=== PATIENT | female | born 1945 | race Caucasian/White ===

== ENCOUNTER 2017-07-16 06:06 | Day surgery (SDC) | payer SELFPAY ==
[2017-07-16] MEDS ORDERED: SUBLIMAZE IV NR (08:24)
[2017-07-16] MEDS ORDERED: VERSED IV NR (08:24)
[2017-07-16 09:09] LABS: Basophils % (Auto) 0.3 % (0.0-1.8); Eosinophils # (Auto) 0.1 K/mm3 (0.0-0.4); Eosinophils % (Auto) 1.2 % (0.0-4.3); Hematocrit 41.4 % (30.3-42.9); Hemoglobin 14.2 gm/dl (10.1-14.3); Lymphocytes # (Auto) 1.9 K/mm3 (1.2-5.4); Lymphocytes % (Auto) 39.1 % (13.4-35.0); Mean Corpuscular HGB Conc 34 % (30-34); Mean Corpuscular Hemoglobin 33 pg (28-32); Mean Corpuscular Volume 95 fl (79-97); Monocytes # (Auto) 0.6 K/mm3 (0.0-0.8); Monocytes % (Auto) 12.7 % (0.0-7.3); Platelet Count 228 K/mm3 (140-440); Red Blood Count 4.36 M/mm3 (3.65-5.03); Red Cell Distribution Width 12.9 % (13.2-15.2)
[2017-07-16 09:21] LABS: INR 0.95 (0.87-1.13)
[2017-07-16 09:22] LABS: Partial Thromboplastin Time 29.6 Sec. (24.2-36.6)
[2017-07-16 09:28] LABS: BUN/Creatinine Ratio 20; Blood Urea Nitrogen 12 mg/dL (7-17); Calcium 9.2 mg/dL (8.4-10.2); Hemolysis Index 141
[2017-07-16 10:38] LABS: Alanine Aminotransferase 27 units/L (7-56)
--- NOTE | 2017-07-16 11:36 | Cat Scan Report ---
CT BIOPSY LUNG LEFT History: Lung mass Description of procedure: Informed consent was obtained. The patient's [id number] served as an drilling manager. Sterile technique was utilized. 1% lidocaine for skin anesthesia. Moderate sedation was accomplished with Versed and fentanyl. The patient was sedated for 15 minutes. Intraobserver time of [address] guidance, a 19-gauge introducer needle was advanced into an approximate 6.6 cm left lower lobe mass. The mass was partially necrotic and bloody. 3 fine needle aspirations and five 20-gauge core biopsies were obtained for pathology. No complications. Impression: Successful fine needle aspiration and biopsy of a 6.6 cm left lower lobe mass.
[2017-07-16 13:37] VITALS: BP 113/76
--- NOTE | 2017-07-16 14:03 | XRay Report ---
AP CHEST: HISTORY: Lung mass, recent left lung biopsy Recent CT-guided biopsy of a left lower lobe lung mass was performed. Followup chest x-ray demonstrates no evidence for pneumothorax. Bilateral pulmonary masses in the lower lung zones are noted. Heart size is at the upper limits of normal. IMPRESSION: No evidence for pneumothorax.
== END 2017-07-16 14:10 | disposition home or self-care (01) ==
LOC: CATHLABREC 06:06 → EDSTATUS 07:30 → CATHLABREC 14:10
PROVIDERS: ATTEND Internal Medicine
DX: C78.02 Secondary malignant neoplasm of left lung (principal); C80.1 Malignant (primary) neoplasm, unspecified; Z79.01 Long term (current) use of anticoagulants; Z79.899 Other long term (current) drug therapy
CPT/HCPCS: 32405; 36415; 36600; 71045; 77012; 80053; 82803; 84436; 84443; 85025; 85610; 85730; 88172; 88173; 88305; 88334; 88341; 88342; 99156; J2250; J3010; 88333

== ENCOUNTER 2017-08-19 10:41 | Day surgery (SDC) | payer SELFPAY ==
[2017-08-19 12:16] LABS: BUN/Creatinine Ratio 20; Blood Urea Nitrogen 14 mg/dL (7-17); Calcium 9.7 mg/dL (8.4-10.2); Hemolysis Index 18
[2017-08-19] MEDS ORDERED: XYLOCAINE 1% 20 mL ONE (12:35)
[2017-08-19] MEDS ORDERED: NACL 0.9% 250ML 250 ML ONE (12:36)
[2017-08-19] MEDS ORDERED: MARCAINE 0.25% INFILTRATI ONE ×2 (12:36→13:04)
[2017-08-19] MEDS ORDERED: HEPARIN 10,000 UNITS/10 ML ONE (12:36)
[2017-08-19] MEDS ORDERED: DILAUDID IV PRN (12:43)
[2017-08-19] MEDS ORDERED: DIPRIVAN 10 MG/ML IV ONE (12:43)
[2017-08-19] MEDS ORDERED: ZOFRAN IV PRN (12:43)
[2017-08-19] MEDS ORDERED: VERSED IV PRN (12:43)
--- NOTE | 2017-08-19 12:43 | Anesthesia Consultation ---
Anesthesia Consult and Med Hx Date of service: 08/19/17 - Airway Anesthetic Teeth Evaluation: Poor ROM Head & Neck: Adequate Mental/Hyoid Distance: Inadequate Mallampati Class: Class III Intubation Access Assessment: Possibly Difficult - Pulmonary Exam CTA: Yes - Cardiac Exam Cardiac Exam: RRR - Pre-Operative Health Status ASA Pre-Surgery Classification: ASA4 Proposed Anesthetic Plan: General - Pulmonary Hx Smoking: No COPD: Yes - Cardiovascular System Hx Hypertension: Yes (DIET CONTROLLED) - Central Nervous System Hx Psychiatric Problems: No - Other Systems Hx Alcohol Use: No Hx Substance Use: No Hx Cancer: Yes
--- NOTE | 2017-08-19 12:43 | Anesthesia Day of Surgery ---
Anesthesia Day of Surgery - Day of Surgery Patient Examined: Yes Patient H&P Reviewed: Yes Patient is NPO: Yes
[2017-08-19] MEDS ORDERED: XYLOCAINE MPF 2% ONE (12:44)
[2017-08-19] MEDS ORDERED: VANCOMYCIN/NS 1 GM/250 ML 1 GM/250 ML BAG IV SCH (13:00)
[2017-08-19] MEDS ORDERED: NACL 0.9% 1000 ML 1,000 ML IV SCH ×2 (13:00)
[2017-08-19] MEDS ORDERED: HEPARIN IV ONE (13:04)
[2017-08-19] MEDS ORDERED: NACL 0.9% 250ML IV ONE (13:04)
[2017-08-19] MEDS ORDERED: XYLOCAINE 1% 20 mL INFILTRATI ONE (13:04)
[2017-08-19] MEDS ORDERED: DILAUDID ONE (13:22)
[2017-08-19] MEDS ORDERED: ZOFRAN ONE (13:38)
[2017-08-19] MEDS ORDERED: DECADRON ONE (13:38)
--- NOTE | 2017-08-19 14:26 | Discharge Summary ---
Short Stay Discharge Plan Activity: advance as tolerated Diet: low fat Wound: per your surgeon's advice Follow up with: JESUS GARCIA MD [Primary Care Provider] - 7 Days
--- NOTE | 2017-08-19 14:58 | Operative Report ---
PREOPERATIVE DIAGNOSIS: Malignancy of the end stoma, etiology probably from the lung area. POSTOPERATIVE DIAGNOSIS: Malignancy etiology, probably from the lung area, pending final pathology report.multiple mases seen , ANESTHESIA: General. BLOOD LOSS: Minimal. SURGERY: Insertion of subcutaneous port under fluoroscopy. This was done on the left subclavian aspect. DESCRIPTION OF PROCEDURE: With the patient in supine position, he was in the usual fashion, I was able to insert a needle toward the direction of subclavian vein on the left side. Then, a guidewire was inserted into it nicely with use of C-arm removing the needle, leaving the guidewire at which point I was able to make a pocket to accommodate the system that was assembled together namely a port. Then, the port was inserted into the pocket itself tacking it to the fascia with use of 3-0 Vicryl. After that maneuvering, I was able to introduce the dilator with use of the guidewire to it nicely removing the guidewire and taking out the dilator leaving the sheath in through which I was able to thread the tubing. It went nicely to the subclavian vein on the left side and then just superior to the great veins of the heart as good backflow of venous blood via the port percutaneously, I was well satisfied. This was tacked to the fascia as mentioned above with 3-0 Vicryl and the same for subcutaneous tissue and 4-0 for the skin itself and the bandage. Then, we took an x-ray of the chest at the end of the operation. The location was good. I did indicate to the nurse where the masses are, this could be seen more on the right side of the chest. JOB# [id number] SURESH/SANDY NAJERA
--- NOTE | 2017-08-19 15:22 | Fluoroscopy Report ---
Chest in OR: Line placement. Breast cancer. A left subclavian central venous line has been placed. The tip appears to lie within the right atrium. Multiple pulmonary masses are identified bilaterally. There is a right pleural effusion. The lungs are fully inflated. No other significant findings. Impression: 1. Port placement as described no apparent complication. 2. Findings consistent with pulmonary metastases.
[2017-08-19 16:18] VITALS: BP 160/72
== END 2017-08-19 16:19 | disposition home or self-care (01) ==
LOC: OR 10:41
PROVIDERS: ATTEND Surgery
DX: C50.912 Malignant neoplasm of unspecified site of left female breast (principal); I10 Essential (primary) hypertension; J44.9 Chronic obstructive pulmonary disease, unspecified; Z88.0 Allergy status to penicillin
CPT/HCPCS: 36415; 36561; 77001; 80048; C1788; J1100; J1170; J1644; J2405; J2704; J3370; J7030; J7050

== ENCOUNTER 2017-11-07 14:29 | Inpatient (IN) | payer SELFPAY ==
--- NOTE | 2017-11-07 13:45 | XRay Report ---
ROUTINE CHEST, TWO VIEWS: HISTORY: Pneumothorax. A large left pneumothorax has developed since 07/16/17 exam. The left pneumothorax is estimated at 75%. There are multiple small and large masses throughout both lungs consistent with metastatic disease which have increased by 50% since the previous exam. No pleural effusion is identified. Heart size is grossly normal. A left Ngnxjz-[id number]-Uzbz is in good position. The bony structures are grossly intact. IMPRESSION: Large left pneumothorax as described. These findings were discussed with Dr. Velez at 1342 hrs. The patient was sent to the emergency department at the ordering physician's request.
--- NOTE | 2017-11-07 14:46 | Ultrasound Report ---
ULTRASOUND PELVIC COMPLETE ULTRASOUND TRANSVAGINAL HISTORY: Pain, ovarian mass. COMPARISON: None. TECHNIQUE: Transabdominal and transvaginal ultrasound with color doppler interrogation. FINDINGS: The uterus and ovaries are not identified consistent with total hysterectomy. No evidence for pelvic cyst, mass, adenopathy or fluid collection. The bladder is empty. IMPRESSION: Hysterectomy. No evidence for pelvic mass.
[2017-11-07 16:17] LABS: Basophils % (Auto) 0.3 % (0.0-1.8); Eosinophils % (Auto) 0.1 % (0.0-4.3); Hematocrit 39.1 % (30.3-42.9); Hemoglobin 13.3 gm/dl (10.1-14.3); Lymphocytes # (Auto) 1.9 K/mm3 (1.2-5.4); Lymphocytes % (Auto) 24.2 % (13.4-35.0); Mean Corpuscular HGB Conc 34 % (30-34); Mean Corpuscular Hemoglobin 34 pg (28-32); Mean Corpuscular Volume 98 fl (79-97); Monocytes # (Auto) 0.2 K/mm3 (0.0-0.8); Platelet Count 232 K/mm3 (140-440); Red Blood Count 3.97 M/mm3 (3.65-5.03); Red Cell Distribution Width 14.6 % (13.2-15.2)
[2017-11-07] MEDS ORDERED: XYLOCAINE 1% MPF 5 mL ONE (16:24)
[2017-11-07 16:29] LABS: Partial Thromboplastin Time 24.4 Sec. (24.2-36.6)
[2017-11-07] MEDS ORDERED: KETAMINE HCL IV ONE ×4 (16:31→19:00)
[2017-11-07] MEDS ORDERED: ATIVAN IV ONE (16:37)
[2017-11-07] MEDS ORDERED: KETALAR IV ONE ×4 (16:37→18:31)
--- NOTE | 2017-11-07 16:37 | Emergency Department Report ---
ED Shortness of Breath HPI - General Chief Complaint: Dyspnea/Respdistress Time Seen by Provider: 11/07/17 15:15 Source: patient, family Mode of arrival: Wheelchair Limitations: Language Barrier - History of Present Illness Initial Comments: 72-year-old female with a past medical history of COPD, GERD, hypertension and cancer multiple known lung tumors presents to the hospital with from outpatient radiology with a pneumothorax. Patient has had shortness of breath and generalized fatigue with exertion the past 2 days. Chest pressure intermittent pleuritic chest pain reported. Patient received chemotherapy yesterday. She has a port to her left chest wall. Her fixer boarding room is Dr. Mendez - Related Data Home Medications Medication Instructions Recorded Confirmed Last Taken Enalapril Maleate [Vasotec] 10 mg PO QDAY 08/19/17 11/07/17 08/18/17 08:30 Omeprazole 40 mg PO QDAY 08/19/17 11/07/17 08/19/17 07:00 Allergies Allergy/AdvReac Type Severity Reaction Status Date / Time Penicillins AdvReac Itching Verified 08/15/17 17:10 ED Review of Systems ROS: Stated complaint: Other details as noted in HPI Comment: All other systems reviewed and negative ED Past Medical Hx - Past Medical History Previous Medical History?: Yes Hx Hypertension: Yes (DIET CONTROLLED) Hx GERD: Yes Hx of Cancer: Yes (lung, ovarian) Hx COPD: Yes Hx HIV: No - Surgical History Past Surgical History?: Yes Additional Surgical History: hysterectomy - Social History Smoking Status: Never Smoker Substance Use Type: None - Medications Home Medications: Home Medications Medication Instructions Recorded Confirmed Last Taken Type Enalapril Maleate [Vasotec] 10 mg PO QDAY 08/19/17 11/07/17 08/18/17 08:30 History Omeprazole 40 mg PO QDAY 08/19/17 11/07/17 08/19/17 07:00 History ED Physical Exam - General Limitations: Language Barrier - Other Other exam information: General: No limitations, patient is alert in no acute distress Head exam: Atraumatic, normocephalic Eyes exam: Normal appearance ENT: Moist mucous membrane, normal oropharynx Neck exam: Normal inspection, full range of motion, no meningismus nontender Respiratory exam: Breath sounds diminished on the left lung field compared to the right. No tachypnea, distress, accessory muscle use. Left anterior chest wall port Cardiovascular: Normal rate and rhythm Abdomen: Soft, nondistended, and nontender, with normal bowel sounds, no rebound, or guarding Extremity: Full range of motion normal inspection no deformity Back: Normal Inspection, full range of motion, no tenderness Neurologic: Alert, oriented x3, cranial nerves intact, no motor or sensory deficit Psychiatric: normal affect, normal mood Skin: Warm, dry, intact ED Course Vital Signs 11/07/17 11/07/17 11/07/17 14:29 16:25 18:02 Temperature 98 F Temperature [ 98 F Pre-Procedure] Pulse Rate 62 Pulse Rate [ 82 74 Intra-Procedure ] Pulse Rate [Pre 70 -Procedure] Respiratory 18 Rate Respiratory 16 16 Rate [Intra- Procedure] Respiratory 16 Rate [Pre- Procedure] Blood Pressure 156/68 Blood Pressure 168/93 182/89 [Intra- Procedure] Blood Pressure 164/78 [Pre-Procedure] O2 Sat by Pulse 93 Oximetry O2 Sat by Pulse 96 95 Oximetry [ Intra-Procedure ] O2 Sat by Pulse 96 Oximetry [Pre- Procedure] - Chest Tube Chest Tube Location: fifth interspace Size of Frisian Tube (cm): 29 Chest Tube Procedure: betadine prep, sterile drapes applied, sterile dressing applied Anesthesia: 1% Lidocaine Volume Anesthetic (ccs): 5 Draper of Air Mitchell: Yes Number of Attempts: 3 Time of Successful Intubation: 18:15 Tube Sutured to Skin: Yes Post Procedure CXR?: Yes - Moderate Sedation Indications: other ASA Class: III Mallampati Airway Score: 3 Preparation: phototypesetting equipment monitor applied, pulse oximeter, capnometry used, supplemental O2 applied, suction/airway equipment at bedside, IV secured Ketamine Dose: 70 ((70x2mg, then 50mg given during 3 attempts)) Complications: none Interventions: oxygen applied Patient Tolerated Procedure: well ED Medical Decision Making - Lab Data Result diagrams: 11/07/17 16:02 11/07/17 16:02 Lab Results 11/07/17 11/07/17 11/07/17 Range/Units 16:02 16:02 16:02 WBC 7.8 (4.5-11.0) K/mm3 RBC 3.97 (3.65-5.03) M/mm3 Hgb 13.3 (10.1-14.3) gm/dl Hct 39.1 (30.3-42.9) % MCV 98 H (79-97) fl MCH 34 H (28-32) pg MCHC 34 (30-34) % RDW 14.6 (13.2-15.2) % Plt Count 232 (140-440) K/mm3 Lymph % (Auto) 24.2 (13.4-35.0) % [place] % (Auto) 2.0 (0.0-7.3) % Eos % (Auto) 0.1 (0.0-4.3) % Baso % (Auto) 0.3 (0.0-1.8) % Lymph # 1.9 (1.2-5.4) K/mm3 [place] # 0.2 (0.0-0.8) K/mm3 Eos # 0.0 (0.0-0.4) K/mm3 Baso # 0.0 (0.0-0.1) K/mm3 Seg Neutrophils % 73.4 H (40.0-70.0) % Seg Neutrophils # 5.7 (1.8-7.7) K/mm3 PT 13.7 (12.2-14.9) Sec. INR 1.00 (0.87-1.13) APTT 24.4 (24.2-36.6) Sec. Sodium 140 (137-145) mmol/L Potassium 4.3 (3.6-5.0) mmol/L Chloride 105.2 (98-107) mmol/L Carbon Dioxide 21 L (22-30) mmol/L Anion Gap 18 mmol/L BUN 22 H (7-17) mg/dL Creatinine 0.7 (0.7-1.2) mg/dL Estimated GFR > 60 ml/min BUN/Creatinine Ratio 31 % Glucose 107 H (65-100) mg/dL Calcium 9.6 (8.4-10.2) mg/dL - Radiology Data Radiology results: report reviewed ROUTINE CHEST, TWO VIEWS: HISTORY: Pneumothorax. A large left pneumothorax has developed since 07/16/17 exam. The left pneumothorax is estimated at 75%. There are multiple small and large masses throughout both lungs consistent with metastatic disease which have increased by 50% since the previous exam. No pleural effusion is identified. Heart size is grossly normal. A left Infuse-a- Port is in good position. The bony structures are grossly intact. IMPRESSION: Large left pneumothorax as described. These findings were discussed with Dr. Velez at 1342 hrs. The patient was sent to the emergency department at the ordering physician's request. - Differential Diagnosis cancer, pneumothroax, copd, pneumonia Critical Care Time: No Critical care attestation.: If time is entered above; I have spent that time in minutes in the direct care of this critically ill patient, excluding procedure time. ED Disposition Clinical Impression: Lung cancer, Pneumothorax, left, COPD (chronic obstructive pulmonary disease) Disposition: 09 OP ADMIT IP TO THIS HOSP Is pt being admited?: Yes Condition: Stable Time of Disposition: 18:38 (Dr Paz/hospitalist)
[2017-11-07 16:38] LABS: BUN/Creatinine Ratio 31; Blood Urea Nitrogen 22 mg/dL (7-17); Calcium 9.6 mg/dL (8.4-10.2); Hemolysis Index 18
[2017-11-07] MEDS ORDERED: XYLOCAINE 1% 20 mL INFILTRATI ONE (16:38)
--- NOTE | 2017-11-07 18:49 | XRay Report ---
FINAL REPORT PROCEDURE: XR CHEST 1V AP TECHNIQUE: Chest radiograph anteroposterior view. CPT 75258 HISTORY: Chest tube COMPARISON: No prior studies are available for comparison. FINDINGS: Heart: Normal. Mediastinum/Vessels: Normal. Lungs/Pleural space: There is a large left pneumothorax, occupying the majority of the left hemithorax. Chest tube tip appears to be within the left chest wall rather than within the pleural space. Nodular densities are seen in the right lung, which is not fully imaged Bony thorax: No acute osseous abnormality. Life support devices: Left central venous catheter tip is in the superior vena cava. IMPRESSION: Large left pneumothorax. Chest tube tip appears to be within the left chest wall rather than within the pleural space. Right lung is not fully imaged. There appear to be right lung nodular densities present
--- NOTE | 2017-11-07 18:53 | XRay Report ---
FINAL REPORT PROCEDURE: XR CHEST 1V AP TECHNIQUE: Chest radiograph anteroposterior view. CPT 13562 HISTORY: chest tube COMPARISON: 11/07/2017 FINDINGS: Heart: Normal. Mediastinum/Vessels: Normal. Lungs/Pleural space: Large left pneumothorax, occupying the majority of the left montez thorax. Bony thorax: No acute osseous abnormality. Life support devices: Left-sided chest tube is within the left chest wall rather than within the pleural space. IMPRESSION: Large left pneumothorax. Chest tube is within the left chest wall rather than within the pleural space and should be repositioned. Findings were discussed with Dr. Camara by telephone at 5:50 p.m. central standard time on 11/07/2017.
--- NOTE | 2017-11-07 19:49 | XRay Report ---
FINAL REPORT PROCEDURE: XR CHEST 1V AP TECHNIQUE: Chest radiograph anteroposterior view. CPT 85882 HISTORY: CHEST TUBE PLACE COMPARISON: 11/07/2017 FINDINGS: Heart: Normal. Mediastinum/Vessels: Normal. Lungs/Pleural space: Left chest tube has been advanced, with re-expansion of the left lung. No left-sided pneumothorax is visible. Bilateral pulmonary nodules are seen.. Bony thorax: No acute osseous abnormality. Life support devices: Left MediPort catheter tip is in the superior vena cava. IMPRESSION: There has been re-expansion of the left lung, with no left pneumothorax visible
--- NOTE | 2017-11-07 22:12 | History and Physical Report ---
History of Present Illness Date of examination: 11/07/17 Date of admission: 11/07/17 18:47 Chief complaint: Chief complaint Shortness of breath for 2 days Left-sided chest pain for 2 days with inspiration History of present illness: History of Present Illness: 72-year-old female with history of ovarian cancer metastatic to lungs sent from outpatient radiology for left-sided pneumothorax. Patient denies shortness of breath and generalized fatigue with exertion for the last 2 days. Also left-sided chest pain which is more with inspiration. Patient received chemotherapy yesterday. She also has a port on the left side. Her lung specialist is Dr. Mendoza and oncologist is Dr. dove Past Medical History Previous Medical History?: Yes Hx Hypertension: Yes (DIET CONTROLLED) Hx GERD: Yes Hx of Cancer: Yes (lung, ovarian) Hx COPD: Yes Surgical History Past Surgical History?: Yes Additional Surgical History: hysterectomy Social History Smoking Status: Never Smoker Substance Use Type: None Family history Htn Medications Home Medications: Home Medications Medication Instructions Recorded Confirmed Last Taken Type Enalapril Maleate [Vasotec] 10 mg PO QDAY 08/19/17 11/07/17 08/18/17 08:30 History Omeprazole 40 mg PO QDAY 08/19/17 11/07/17 08/19/17 07:00 History Review of Systems ROS: Stated complaint: Other details as noted in HPI Comment: All other systems reviewed and negative Medications and Allergies Allergies Allergy/AdvReac Type Severity Reaction Status Date / Time Penicillins AdvReac Itching Verified 08/15/17 17:10 Home Medications Medication Instructions Recorded Confirmed Last Taken Type Enalapril Maleate [Vasotec] 10 mg PO QDAY 08/19/17 11/07/17 08/18/17 08:30 History Omeprazole 40 mg PO QDAY 08/19/17 11/07/17 08/19/17 07:00 History Exam - Physical Exam Narrative exam: Lying in bed in discomfort - Constitutional Vitals: Temp Pulse Resp BP Pulse Ox 98 F 60 16 144/72 93 11/07/17 18:02 11/07/17 20:03 11/07/17 20:03 11/07/17 20:03 11/07/17 20:03 General appearance: Present: severe distress, well-nourished - EENT Eyes: Present: PERRL ENT: hearing intact, clear oral mucosa - Neck Neck: Present: supple, normal ROM - Respiratory Respiratory effort: normal Respiratory: left: diminished (diminished air entry on left side), bilateral: CTA - Cardiovascular Heart rate: 76 Rhythm: regular Heart Sounds: Present: S1 & S2. Absent: rub, click - Extremities Extremities: no ischemia, pulses intact, pulses symmetrical, No edema Peripheral Pulses: within normal limits - Abdominal General gastrointestinal: Present: soft, non-tender, non-distended, normal bowel sounds Female genitourinary: Present: normal - Rectal Rectal Exam: deferred - Integumentary Integumentary: Present: clear, warm, dry - Musculoskeletal Musculoskeletal: gait normal, strength equal bilaterally - Psychiatric Psychiatric: appropriate mood/affect, intact judgment & insight - Neurologic Neurologic: CNII-XII intact, moves all extremities - Allied Health Allied health notes reviewed: nursing, case management Results - Labs CBC & Chem 7: 11/07/17 16:02 11/07/17 16:02 Labs: Laboratory Last Values WBC 7.8 K/mm3 (4.5-11.0) 11/07/17 16:02 RBC 3.97 M/mm3 (3.65-5.03) 11/07/17 16:02 Hgb 13.3 gm/dl (10.1-14.3) 11/07/17 16:02 Hct 39.1 % (30.3-42.9) 11/07/17 16:02 MCV 98 fl (79-97) H 11/07/17 16:02 MCH 34 pg (28-32) H 11/07/17 16:02 MCHC 34 % (30-34) 11/07/17 16:02 RDW 14.6 % (13.2-15.2) 11/07/17 16:02 Plt Count 232 K/mm3 (140-440) 11/07/17 16:02 Lymph % (Auto) 24.2 % (13.4-35.0) 11/07/17 16:02 [place] % (Auto) 2.0 % (0.0-7.3) 11/07/17 16:02 Eos % (Auto) 0.1 % (0.0-4.3) 11/07/17 16:02 Baso % (Auto) 0.3 % (0.0-1.8) 11/07/17 16:02 Lymph # 1.9 K/mm3 (1.2-5.4) 11/07/17 16:02 [place] # 0.2 K/mm3 (0.0-0.8) 11/07/17 16:02 Eos # 0.0 K/mm3 (0.0-0.4) 11/07/17 16:02 Baso # 0.0 K/mm3 (0.0-0.1) 11/07/17 16:02 Seg Neutrophils % 73.4 % (40.0-70.0) H 11/07/17 16:02 Seg Neutrophils # 5.7 K/mm3 (1.8-7.7) 11/07/17 16:02 PT 13.7 Sec. (12.2-14.9) 11/07/17 16:02 INR 1.00 (0.87-1.13) 11/07/17 16:02 APTT 24.4 Sec. (24.2-36.6) 11/07/17 16:02 Sodium 140 mmol/L (137-145) 11/07/17 16:02 Potassium 4.3 mmol/L (3.6-5.0) 11/07/17 16:02 Chloride 105.2 mmol/L (98-107) 11/07/17 16:02 Carbon Dioxide 21 mmol/L (22-30) L 11/07/17 16:02 Anion Gap 18 mmol/L 11/07/17 16:02 BUN 22 mg/dL (7-17) H 11/07/17 16:02 Creatinine 0.7 mg/dL (0.7-1.2) 11/07/17 16:02 Estimated GFR > 60 ml/min 11/07/17 16:02 BUN/Creatinine Ratio 31 % 11/07/17 16:02 Glucose 107 mg/dL (65-100) H 11/07/17 16:02 Calcium 9.6 mg/dL (8.4-10.2) 11/07/17 16:02 Short CBC 11/07/17 Range/Units 16:02 WBC 7.8 (4.5-11.0) K/mm3 Hgb 13.3 (10.1-14.3) gm/dl Hct 39.1 (30.3-42.9) % Plt Count 232 (140-440) K/mm3 [facility] 11/07/17 16:02 Sodium 140 Potassium 4.3 Chloride 105.2 Carbon Dioxide 21 L BUN 22 H Creatinine 0.7 Glucose 107 H Calcium 9.6 - Imaging and Cardiology EKG: report reviewed (normal sinus rhythm heart rate of 89 per minute no acute ST-T wave changes EKG interpreted by me) Imaging and Cardiology: Chest x-ray IMPRESSION: Large left pneumothorax as described. These findings were discussed with Dr. Velez at 1342 hrs. The patient was sent to the emergency department at the ordering physician's request. Pelvic ultrasound FINDINGS: The uterus and ovaries are not identified consistent with total hysterectomy. No evidence for pelvic cyst, mass, adenopathy or fluid collection. The bladder is empty. IMPRESSION: Hysterectomy. No evidence for pelvic mass. Transvaginal ultrasound IMPRESSION: Hysterectomy. No evidence for pelvic mass. Assessment and Plan Advance Directives: Yes (full code) VTE prophylaxis?: Chemical Plan of care discussed with patient/family: Yes - Patient Problems (1) Pneumothorax, left Current Visit: Yes Status: Acute Plan to address problem: Chest tube inserted in the emergency room Dr. MENDOZA Consulted (2) Lung cancer Current Visit: Yes Status: Chronic Qualifiers: Lung location: unspecified part of lung Plan to address problem: Dr. Barbie rosales consulted On chemotherapy Not sure whether patient has ovarian cancer No pelvic mass (3) COPD (chronic obstructive pulmonary disease) Current Visit: Yes Status: Chronic Qualifiers: COPD type: unspecified COPD Qualified Code(s): J44.9 - Chronic obstructive pulmonary disease, unspecified Plan to address problem: Continue duo nebs (4) T2DM (type 2 diabetes mellitus) Current Visit: Yes Status: Chronic Qualifiers: Diabetes mellitus terminal block assembler insulin use: without mcfp use Plan to address problem: Continue coverage and metformin (5) Hypertension Current Visit: Yes Status: Chronic Qualifiers: Hypertension type: essential hypertension Qualified Code(s): I10 - Essential (primary) hypertension Plan to address problem: Continue antihypertensives especially amlodipine 10 mg once a day (6) DVT prophylaxis Current Visit: Yes Status: Acute Plan to address problem: Continue Lovenox and GI prophylaxis
[2017-11-07] MEDS ORDERED: SODIUM CHLORIDE FLUSH SYRINGE 10 ML IV PRN (22:25)
[2017-11-07] MEDS ORDERED: DILAUDID IV PRN (22:25)
[2017-11-07] MEDS ORDERED: ALUM-MAG HYDROX-SIMETH 200-200-20MG/5ML PO PRN (22:25)
[2017-11-07] MEDS ORDERED: AMBIEN PO PRN (22:25)
[2017-11-07] MEDS ORDERED: MORPHINE IV PRN (22:25)
[2017-11-07] MEDS ORDERED: TYLENOL PO PRN (22:25)
[2017-11-07] MEDS ORDERED: REGLAN IV PRN (22:25)
[2017-11-07] MEDS ORDERED: ZOFRAN IV PRN (22:25)
[2017-11-08] MEDS: NACL 0.9% 1000 ML 1,000 ML IV SCH ×2 (00:07→14:35)
[2017-11-08 05:54] LABS: Basophils % (Auto) 0.2 % (0.0-1.8); Eosinophils % (Auto) 0.5 % (0.0-4.3); Hemoglobin 12.3 gm/dl (10.1-14.3); Lymphocytes # (Auto) 2.4 K/mm3 (1.2-5.4); Lymphocytes % (Auto) 33.2 % (13.4-35.0); Mean Corpuscular HGB Conc 34 % (30-34); Mean Corpuscular Hemoglobin 34 pg (28-32); Mean Corpuscular Volume 98 fl (79-97); Monocytes # (Auto) 0.1 K/mm3 (0.0-0.8); Monocytes % (Auto) 1.1 % (0.0-7.3); Platelet Count 186 K/mm3 (140-440); Red Blood Count 3.67 M/mm3 (3.65-5.03); Red Cell Distribution Width 14.8 % (13.2-15.2)
[2017-11-08 06:20] LABS: Alanine Aminotransferase 12 units/L (7-56); Albumin 3.6 g/dL (3.9-5); BUN/Creatinine Ratio 33; Blood Urea Nitrogen 20 mg/dL (7-17); Calcium 8.8 mg/dL (8.4-10.2); Hemolysis Index 8
[2017-11-08] MEDS: DUONEB *Not for PRN Use IH SCH ×4 (07:55→22:05)
[2017-11-08] MEDS ORDERED: PEPCID PO SCH (10:00)
[2017-11-08] MEDS ORDERED: NON-FORMULARY (Enalapril Maleate [Vasotec] 10 MG) PO SCH (10:00)
[2017-11-08] MEDS ORDERED: NON-FORMULARY (Omeprazole [Omeprazole] 40 MG) PO SCH (10:00)
[2017-11-08] MEDS: PROTONIX PO SCH (11:03)
[2017-11-08] MEDS: ZESTRIL PO SCH (11:03)
[2017-11-08] MEDS: SODIUM CHLORIDE FLUSH SYRINGE 10 ML IV SCH ×2 (11:04→22:44)
[2017-11-08] MEDS: MILK OF MAGNESIA PO PRN (14:35)
--- NOTE | 2017-11-08 15:19 | Progress Note ---
Assessment and Plan Assessment and plan: [employer] 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 Patient denies shortness of breath and generalized fatigue with exertion for the last 2 days. Also left-sided chest pain which is more with inspiration. Patient received chemotherapy yesterday. She also has a port on the left side. Her lung specialist is Dr. Mendoza and oncologist is Dr. dawson. Family did not want to tell the patient of the ovarian cancer per Nai. 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 Elias Pneumothorax, left, Catamenial type Chest tube inserted in the emergency room Dr. MENDOZA Consulted and to manage serial CXR Ovarian Cancer with mets to the Left Lung cancer Dr. Valentin group consulted On chemotherapy Not sure whether patient has ovarian cancer No pelvic mass on pelvis u/s COPD (chronic obstructive pulmonary disease) Continue duo nebs T2DM (type 2 diabetes mellitus) Continue coverage and metformin Hypertension Continue antihypertensives especially amlodipine 10 mg once a day DVT prophylaxis Continue Lovenox and GI prophylaxis History Interval history: Patient was seen and examined. Follow-up on current diagnosis of PTX. Overnight uneventful. Patient denies any nausea/vomiting or severe headaches. Imaging, nursing note, chart, labs and old chart reviewed. Discussed with patient. Hospitalist Physical - Physical exam Narrative exam: GEN: WDWN, NAD, Awake, Alert, Orientated HEENT: NCAT, EOMI, PERRL, OP Clear NECK: supple, no adenopathy, no thyromegaly, no JVD CVS/HEART: RRR, normal S1S2, pulses present bilaterally CHEST/LUNGS: left chest tube in place but BS are good bilaterally, Symmetrical chest expansion, good air entry bilaterally GI/Abdomen: soft, NTND, good bowel sounds, no guarding or rebound /Bladder: no suprapubic tenderness, no CVA or paraspinal tenderness EXT/Skin: no c/c/e, no obvious rash MSK: FROM x 4 Neuro: CN 2-12 grossly intact, no new focal deficits Psych: calm - Constitutional Vitals: Temp Pulse Resp BP Pulse Ox 98.1 F 82 18 114/67 91 11/08/17 11:14 11/08/17 13:48 11/08/17 13:48 11/08/17 11:14 11/08/17 13:49 General appearance: Present: well-nourished Results - Labs CBC & Chem 7: 11/08/17 05:12 11/08/17 05:12 Labs: Laboratory Last Values WBC 7.2 K/mm3 (4.5-11.0) 11/08/17 05:12 RBC 3.67 M/mm3 (3.65-5.03) 11/08/17 05:12 Hgb 12.3 gm/dl (10.1-14.3) 11/08/17 05:12 Hct 36.0 % (30.3-42.9) 11/08/17 05:12 MCV 98 fl (79-97) H 11/08/17 05:12 MCH 34 pg (28-32) H 11/08/17 05:12 MCHC 34 % (30-34) 11/08/17 05:12 RDW 14.8 % (13.2-15.2) 11/08/17 05:12 Plt Count 186 K/mm3 (140-440) 11/08/17 05:12 Lymph % (Auto) 33.2 % (13.4-35.0) 11/08/17 05:12 [place] % (Auto) 1.1 % (0.0-7.3) 11/08/17 05:12 Eos % (Auto) 0.5 % (0.0-4.3) 11/08/17 05:12 Baso % (Auto) 0.2 % (0.0-1.8) 11/08/17 05:12 Lymph # 2.4 K/mm3 (1.2-5.4) 11/08/17 05:12 [place] # 0.1 K/mm3 (0.0-0.8) 11/08/17 05:12 Eos # 0.0 K/mm3 (0.0-0.4) 11/08/17 05:12 Baso # 0.0 K/mm3 (0.0-0.1) 11/08/17 05:12 Seg Neutrophils % 65.0 % (40.0-70.0) 11/08/17 05:12 Seg Neutrophils # 4.6 K/mm3 (1.8-7.7) 11/08/17 05:12 PT 13.7 Sec. (12.2-14.9) 11/07/17 16:02 INR 1.00 (0.87-1.13) 11/07/17 16:02 APTT 24.4 Sec. (24.2-36.6) 11/07/17 16:02 Sodium 141 mmol/L (137-145) 11/08/17 05:12 Potassium 4.3 mmol/L (3.6-5.0) 11/08/17 05:12 Chloride 106.8 mmol/L (98-107) 11/08/17 05:12 Carbon Dioxide 24 mmol/L (22-30) 11/08/17 05:12 Anion Gap 15 mmol/L 11/08/17 05:12 BUN 20 mg/dL (7-17) H 11/08/17 05:12 Creatinine 0.6 mg/dL (0.7-1.2) L 11/08/17 05:12 Estimated GFR > 60 ml/min 11/08/17 05:12 BUN/Creatinine Ratio 33 % 11/08/17 05:12 Glucose 79 mg/dL (65-100) 11/08/17 05:12 POC Glucose 151 (70-105) H 11/08/17 11:15 Hemoglobin A1c 6.5 % (4-6) H 11/07/17 23:04 Calcium 8.8 mg/dL (8.4-10.2) 11/08/17 05:12 Total Bilirubin 1.50 mg/dL (0.1-1.2) H 11/08/17 05:12 AST 22 units/L (5-40) 11/08/17 05:12 ALT 12 units/L (7-56) 11/08/17 05:12 Alkaline Phosphatase 57 units/L (35-129) 11/08/17 05:12 Total Protein 6.1 g/dL (6.3-8.2) L 11/08/17 05:12 Albumin 3.6 g/dL (3.9-5) L 11/08/17 05:12 Albumin/Globulin Ratio 1.4 % 11/08/17 05:12
--- NOTE | 2017-11-08 18:40 | Consultation ---
History of Present Illness Consult date: 11/08/17 Reason for consult: dyspnea, pneumothorax, lung mass History of present illness: PULMONARY CONSULTATION DR. BURKS THANK YOU FOR ASKING ME TO PARTICIPATE IN THE CARE OF THIS PATIENT: PATIENT KNOWN TO ME. This is 72 year old female, known to me follwebart in my office.Patient originally presented to my office few months ago with abnormal chest xray and CAT scan of chest. Chest xray and CAT scan showed bilateral multiple pulmonary nodules.Patient complained slight cough.Denied excessive shortness of breath or weight loss.Obtained percutaneous needle biopsy of chest lesions under CT guidance at [facility] which is reported as granulosa cell tumor.Patients slides sent to [facility] for second opinion. 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 Patient refered to Oncologist Dr. CRONIN who started on chemotherapy.Patient received 3 cycles of chemotherapy. Patient developed increasing shortness of breath for last 2 weeks.Patient came to my office yesterday. Chest xray obtained showed large left Pneumothorax.Patient also complained shortness of breath even with slight exertion.Patient sent to [facility] ,repeated chest xray which showed again large left pneumothorax.Patient sent to the emergency room for left chest tube placement and admission to the hospital.Left chest tube inserted by the emergency room physician,left lung is expanded,attached chest tube to the suction 20 cm H2O pressure.Patient says feeling better and breathing better. Patient has abdominal CATscan in the Past, No abdominal masses reported. No mention of Ovaries. To make sure obtained trans vaginal ultrasound which reported no ovaries or uterus Identified consistent with patient history of total abdominal hysterectomy. Patients family history significant for hypertension. Patient is house for most of her life. and has 11 children and 9 living. Patient Allergic to penicillin. Past History Past Medical History: GERD, hypertension, other (Granulosa cell tumor of lung.) Medications and Allergies Allergies Allergy/AdvReac Type Severity Reaction Status Date / Time Penicillins AdvReac Itching Verified 08/15/17 17:10 Home Medications Medication Instructions Recorded Confirmed Last Taken Type Enalapril Maleate [Vasotec] 10 mg PO QDAY 08/19/17 11/07/17 08/18/17 08:30 History Omeprazole 40 mg PO QDAY 08/19/17 11/07/17 08/19/17 07:00 History Active Meds: Active Medications Acetaminophen (Tylenol) 650 mg PO Q4H PRN PRN Reason: Pain MILD(1-3)/Fever >100.5/VELASQUEZ Al Hydrox/Mg Hydrox/Simethicone (Alum-Mag Hydrox-Simeth [id number]/5ml) 30 ml PO Q4H PRN PRN Reason: Indigestion Albuterol/Ipratropium (Duoneb *Not For Prn Use*) 1 ampul IH QIDRT [facility] Last Admin: 11/08/17 17:38 Dose: 1 ampul Enoxaparin Sodium (Lovenox) 40 mg SUB-Q QDAY@2200 [facility] Hydromorphone HCl (Dilaudid) 1 mg IV Q3H PRN PRN Reason: Pain , Severe (7-10) Sodium Chloride (Nacl 0.9% 1000 Ml) 1,000 mls @ 100 mls/hr IV DIRECT [facility] Last Admin: 11/08/17 14:35 Dose: 100 mls/hr Lisinopril (Zestril) 10 mg PO QDAY [facility] Last Admin: 11/08/17 11:03 Dose: 10 mg Magnesium Hydroxide (Milk Of Magnesia) 30 ml PO Q4H PRN PRN Reason: Constipation Last Admin: 11/08/17 14:35 Dose: 30 ml Metoclopramide HCl (Reglan) 10 mg IV Q6H PRN PRN Reason: Nausea And Vomiting Morphine Sulfate (Morphine) 2 mg IV Q4H PRN PRN Reason: Pain, Moderate (4-6) Ondansetron HCl (Zofran) 4 mg IV Q8H PRN PRN Reason: Nausea And Vomiting Oxycodone/Acetaminophen (Percocet 5/325) 1 tab PO Q6H PRN PRN Reason: Pain, Moderate (4-6) Pantoprazole Sodium (Protonix) 40 mg PO DAILY [facility] Last Admin: 11/08/17 11:03 Dose: 40 mg Sodium Chloride (Sodium Chloride Flush Syringe 10 Ml) 10 ml IV BID [facility] Last Admin: 11/08/17 11:04 Dose: 10 ml Sodium Chloride (Sodium Chloride Flush Syringe 10 Ml) 10 ml IV PRN PRN PRN Reason: LINE FLUSH Zolpidem Tartrate (Ambien) 5 mg PO QHS PRN PRN Reason: Insomnia Review of Systems All systems: negative Physical Examination Vital signs: Vital Signs Temp Pulse Resp BP Pulse Ox 98 F 62 18 156/68 93 11/07/17 14:29 11/07/17 14:29 11/07/17 14:29 11/07/17 14:29 11/07/17 14:29 General appearance: no acute distress, alert Eyes: non-icteric ENT: oropharynx moist Neck: supple, no JVD Ascultation: Bilateral: rhonchi, other (Bilateral breath sounds heard after chest tube placement.) Cardiovascular: regular rate and rhythm Gastrointestinal: normoactive bowel sounds, soft Integumentary: normal Extremities: no cyanosis, no edema Musculoskeletal: no deformities Gait: poor gait normal mental status, non-focal exam, pupils equal and round, CN II-XII normal mood appropriate Results - Laboratory Findings CBC and BMP: 11/09/17 06:26 11/09/17 06:26 PT/INR, D-dimer PT 13.7 Sec. (12.2-14.9) 11/07/17 16:02 INR 1.00 (0.87-1.13) 11/07/17 16:02 Abnormal lab findings: Abnormal Labs 11/07/17 11/07/17 11/07/17 16:02 16:02 23:04 MCV 98 H MCH 34 H Seg Neutrophils % 73.4 H Carbon Dioxide 21 L BUN 22 H Creatinine Glucose 107 H POC Glucose Hemoglobin A1c 6.5 H Total Bilirubin Total Protein Albumin 11/08/17 11/08/17 11/08/17 05:12 05:12 11:15 MCV 98 H MCH 34 H Seg Neutrophils % Carbon Dioxide BUN 20 H Creatinine 0.6 L Glucose POC Glucose 151 H Hemoglobin A1c Total Bilirubin 1.50 H Total Protein 6.1 L Albumin 3.6 L - Diagnostic Findings Chest x-ray: report reviewed (Reexpansion of left lung.Left chest tube placement. Bilateral pulmonary massess.), image reviewed Assessment and Plan This is 72 year old female, known to me debbie in my office.Patient originally presented to my office few months ago with abnormal chest xray and CAT scan of chest. Chest xray and CAT scan showed bilateral multiple pulmonary nodules.Patient complained slight cough.Denied excessive shortness of breath or weight loss.Obtained percutaneous needle biopsy of chest lesions under CT guidance at [facility] which is reported as granulosa cell tumor.Patients slides sent to [facility] for second opinion. 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 Patient refered to Oncologist Dr. CRONIN who started on chemotherapy.Patient received 3 cycles of chemotherapy. Patient developed increasing shortness of breath for last 2 weeks.Patient came to my office yesterday. Chest xray obtained showed large left Pneumothorax.Patient also complained shortness of breath even with slight exertion.Patient sent to [facility] ,repeated chest xray which showed again large left pneumothorax.Patient sent to the emergency room for left chest tube placement and admission to the hospital.Left chest tube inserted by the emergency room physician,left lung is expanded,attached chest tube to the suction 20 cm H2O pressure.Patient says feeling better and breathing better. Patient has abdominal CATscan in the Past, No abdominal masses reported. No mention of Ovaries. To make sure obtained trans vaginal ultrasound which reported no ovaries or uterus Identified consistent with patient history of total abdominal hysterectomy. Patients family history significant for hypertension. Patient is house for most of her life. and has 11 children and 9 living. Patient Allergic to penicillin. - Patient Problems (1) Pneumothorax, left Current Visit: Yes Status: Acute Plan to address problem: Left tube placement and reexpansion of left lung. (2) Granulosa cell tumor Current Visit: Yes Status: Acute Plan to address problem: Percutaneous needle Biopsy of chest lesion reported Granulosa cell tumor of Ovarian Origin. (3) Hypertension Current Visit: Yes Status: Chronic Qualifiers: Hypertension type: essential hypertension Qualified Code(s): I10 - Essential (primary) hypertension Plan to address problem: Management as per primary care.
[2017-11-08] MEDS: LOVENOX SUB-Q SCH (22:33)
[2017-11-09 07:15] LABS: Hematocrit 33.3 % (30.3-42.9); Hemoglobin 11.7 gm/dl (10.1-14.3); Mean Corpuscular HGB Conc 35 % (30-34); Mean Corpuscular Hemoglobin 34 pg (28-32); Mean Corpuscular Volume 98 fl (79-97); Platelet Count 161 K/mm3 (140-440); Red Blood Count 3.42 M/mm3 (3.65-5.03); Red Cell Distribution Width 14.3 % (13.2-15.2)
[2017-11-09 07:38] LABS: BUN/Creatinine Ratio 23; Blood Urea Nitrogen 14 mg/dL (7-17); Calcium 8.7 mg/dL (8.4-10.2); Hemolysis Index 6
[2017-11-09] MEDS: DUONEB *Not for PRN Use IH SCH ×3 (08:55→17:36)
[2017-11-09] MEDS: ZESTRIL PO SCH (09:38)
[2017-11-09] MEDS: PROTONIX PO SCH (09:38)
[2017-11-09] MEDS: NACL 0.9% 1000 ML 1,000 ML IV SCH (09:39)
[2017-11-09] MEDS: SODIUM CHLORIDE FLUSH SYRINGE 10 ML IV SCH ×2 (10:00→22:20)
--- NOTE | 2017-11-09 11:32 | XRay Report ---
FINAL REPORT EXAM: XR CHEST 1V AP HISTORY: follow up on left pneumothorax. COMPARISON: Nine chest radiograph performed on 11/07/2017 TECHNIQUE: Single portable view of the chest FINDINGS: Left chest port with tip of the catheter in the superior vena cava. Left-sided pigtail catheter with tip in the periphery of the left montez thorax. The cardiomediastinal silhouette is normal in appearance. There is a small left apical pneumothorax, slightly increased since the previous study. Again seen are bilateral pulmonary nodules. There is a small left pleural effusion. There is no bony abnormality. There is subcutaneous emphysema along the left lateral chest wall. IMPRESSION: Increase in size of left pneumothorax. Unchanged bilateral pulmonary nodules. Small left pleural effusion.
--- NOTE | 2017-11-09 13:55 | Event Note ---
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
--- NOTE | 2017-11-09 15:55 | Progress Note ---
Assessment and Plan This is 72 year old female, known to me debbie in my office.Patient originally presented to my office few months ago with abnormal chest xray and CAT scan of chest. Chest xray and CAT scan showed bilateral multiple pulmonary nodules.Patient complained slight cough.Denied excessive shortness of breath or weight loss.Obtained percutaneous needle biopsy of chest lesions under CT guidance at [facility] which is reported as granulosa cell tumor.Patients slides sent to [facility] for second opinion. 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 Patient refered to Oncologist Dr. CRONIN who started on chemotherapy.Patient received 3 cycles of chemotherapy. Patient developed increasing shortness of breath for last 2 weeks.Patient came to my office yesterday. Chest xray obtained showed large left Pneumothorax.Patient also complained shortness of breath even with slight exertion.Patient sent to [facility] ,repeated chest xray which showed again large left pneumothorax.Patient sent to the emergency room for left chest tube placement and admission to the hospital.Left chest tube inserted by the emergency room physician,left lung is expanded,attached chest tube to the suction 20 cm H2O pressure.Patient says feeling better and breathing better. Patient has abdominal CATscan in the Past, No abdominal masses reported. No mention of Ovaries. To make sure obtained trans vaginal ultrasound which reported no ovaries or uterus Identified consistent with patient history of total abdominal hysterectomy. Patients family history significant for hypertension. Patient is house for most of her life. and has 11 children and 9 living. Patient Allergic to penicillin. 11/09/17 Patient alert, awake. Patient is 4 litres O2 via nasal canula. O2 saturation 95% .No acute respiratory distress.Patients todays chest xray showing increase in left pneumothorax.Patient is getting only intermittent chest tube suction.Increased the suction to 40 cm H2O pressure and made it continuous. Repeating chest xray tomorrow - Patient Problems (1) Pneumothorax, left Current Visit: Yes Status: Acute Plan to address problem: Patients todays chest xray showing increase in left pneumothorax.Patient is getting only intermittent chest tube suction.Increased the suction to 40 cm H2O pressure and made it continuous. Repeating chest xray tomorrow (2) Granulosa cell tumor Current Visit: Yes Status: Acute Plan to address problem: Percutaneous needle Biopsy of chest lesion reported Granulosa cell tumor of Ovarian Origin. (3) Hypertension Current Visit: Yes Status: Chronic Qualifiers: Hypertension type: essential hypertension Qualified Code(s): I10 - Essential (primary) hypertension Plan to address problem: Management as per primary care. Subjective Date of service: 11/09/17 Interval history: Patient alert, awake. Patient is 4 litres O2 via nasal canula. O2 saturation 95% .No acute respiratory distress.Patients todays chest xray showing increase in left pneumothorax.Patient is getting only intermittent chest tube suction.Increased the suction to 40 cm H2O pressure and made it continuous. Repeating chest xray tomorrow. Objective Vital Signs - 12hr 11/09/17 11/09/17 11/09/17 08:55 09:21 09:38 Temperature 98.0 F Pulse Rate 100 H 103 H Pulse Rate [ 72 Anterior Bilateral Throughout] Pulse Rate [ From Monitor] Respiratory 19 Rate Respiratory 17 Rate [Anterior Bilateral Throughout] Blood Pressure 120/68 120/68 O2 Sat by Pulse 95 91 Oximetry 11/09/17 11/09/17 10:00 12:00 Temperature Pulse Rate 79 Pulse Rate [ Anterior Bilateral Throughout] Pulse Rate [ 103 H From Monitor] Respiratory 19 Rate Respiratory Rate [Anterior Bilateral Throughout] Blood Pressure O2 Sat by Pulse 91 Oximetry Constitutional: no acute distress, alert Eyes: non-icteric ENT: oropharynx moist Neck: supple, no JVD Ascultation: Bilateral: rhonchi, other (Bilateral breath sounds heard after chest tube placement.) Cardiovascular: regular rate and rhythm Gastrointestinal: normoactive bowel sounds, soft Integumentary: normal Extremities: no cyanosis, no edema Neurologic: normal mental status, non-focal exam, pupils equal and round, CN II- XII normal Psychiatric: mood appropriate CBC and BMP: 11/09/17 06:26 11/09/17 06:26 ABG, PT/INR, D-dimer: PT/INR, D-dimer PT 13.7 Sec. (12.2-14.9) 11/07/17 16:02 INR 1.00 (0.87-1.13) 11/07/17 16:02 Abnormal lab findings: Abnormal Labs 11/07/17 11/07/17 11/07/17 16:02 16:02 23:04 RBC MCV 98 H MCH 34 H MCHC Seg Neutrophils % 73.4 H Carbon Dioxide 21 L BUN 22 H Creatinine Glucose 107 H POC Glucose Hemoglobin A1c 6.5 H Total Bilirubin Total Protein Albumin 11/08/17 11/08/17 11/08/17 05:12 05:12 11:15 RBC MCV 98 H MCH 34 H MCHC Seg Neutrophils % Carbon Dioxide BUN 20 H Creatinine 0.6 L Glucose POC Glucose 151 H Hemoglobin A1c Total Bilirubin 1.50 H Total Protein 6.1 L Albumin 3.6 L 11/09/17 11/09/17 06:26 06:26 RBC 3.42 L MCV 98 H MCH 34 H MCHC 35 H Seg Neutrophils % Carbon Dioxide BUN Creatinine 0.6 L Glucose POC Glucose Hemoglobin A1c Total Bilirubin Total Protein Albumin Chest x-ray: report reviewed ( increase in left Pneumothorax compare to last chest xray.), image reviewed
--- NOTE | 2017-11-09 17:32 | Progress Note ---
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 Patient denies shortness of breath and generalized fatigue with exertion for the last 2 days. Also left-sided chest pain which is more with inspiration. Patient received chemotherapy yesterday. She also has a port on the left side. Her lung specialist is Dr. Mendoza and oncologist is Dr. dawson. Family did not want to tell the patient of the ovarian cancer per Nai. 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 Elias Pneumothorax, left, Catamenial type Chest tube inserted in the emergency room Dr. MENDOZA Consulted and to manage, increase suction. serial CXR Ovarian Cancer with mets to the Left Lung cancer Dr. Valentin group consulted On chemotherapy Not sure whether patient has ovarian cancer No pelvic mass on pelvis u/s COPD (chronic obstructive pulmonary disease) Continue duo nebs T2DM (type 2 diabetes mellitus) Continue coverage and metformin Hypertension Continue antihypertensives especially amlodipine 10 mg once a day DVT prophylaxis Continue Lovenox and GI prophylaxis History Interval history: Patient was seen and examined. Follow-up on current diagnosis of PTX. Overnight uneventful. Patient denies any nausea/vomiting or severe headaches. Imaging, nursing note, chart, labs and old chart reviewed. Discussed with patient. Hospitalist Physical - Physical exam Narrative exam: GEN: WDWN, NAD, Awake, Alert, Orientated HEENT: NCAT, EOMI, PERRL, OP Clear NECK: supple, no adenopathy, no thyromegaly, no JVD CVS/HEART: RRR, normal S1S2, pulses present bilaterally CHEST/LUNGS: left chest tube in place but BS are good bilaterally, Symmetrical chest expansion, good air entry bilaterally GI/Abdomen: soft, NTND, good bowel sounds, no guarding or rebound /Bladder: no suprapubic tenderness, no CVA or paraspinal tenderness EXT/Skin: no c/c/e, no obvious rash MSK: FROM x 4 Neuro: CN 2-12 grossly intact, no new focal deficits Psych: calm - Constitutional Vitals: Temp Pulse Resp BP Pulse Ox 98.3 F 77 18 105/67 95 11/09/17 16:28 11/09/17 16:28 11/09/17 16:28 11/09/17 16:28 11/09/17 16:28 General appearance: Present: well-nourished Results - Labs CBC & Chem 7: 11/09/17 06:26 11/09/17 06:26 Labs: Laboratory Last Values WBC 4.6 K/mm3 (4.5-11.0) 11/09/17 06:26 RBC 3.42 M/mm3 (3.65-5.03) L 11/09/17 06:26 Hgb 11.7 gm/dl (10.1-14.3) 11/09/17 06:26 Hct 33.3 % (30.3-42.9) 11/09/17 06:26 MCV 98 fl (79-97) H 11/09/17 06:26 MCH 34 pg (28-32) H 11/09/17 06:26 MCHC 35 % (30-34) H 11/09/17 06:26 RDW 14.3 % (13.2-15.2) 11/09/17 06:26 Plt Count 161 K/mm3 (140-440) 11/09/17 06:26 Lymph % (Auto) 33.2 % (13.4-35.0) 11/08/17 05:12 [place] % (Auto) 1.1 % (0.0-7.3) 11/08/17 05:12 Eos % (Auto) 0.5 % (0.0-4.3) 11/08/17 05:12 Baso % (Auto) 0.2 % (0.0-1.8) 11/08/17 05:12 Lymph # 2.4 K/mm3 (1.2-5.4) 11/08/17 05:12 [place] # 0.1 K/mm3 (0.0-0.8) 11/08/17 05:12 Eos # 0.0 K/mm3 (0.0-0.4) 11/08/17 05:12 Baso # 0.0 K/mm3 (0.0-0.1) 11/08/17 05:12 Seg Neutrophils % 65.0 % (40.0-70.0) 11/08/17 05:12 Seg Neutrophils # 4.6 K/mm3 (1.8-7.7) 11/08/17 05:12 PT 13.7 Sec. (12.2-14.9) 11/07/17 16:02 INR 1.00 (0.87-1.13) 11/07/17 16:02 APTT 24.4 Sec. (24.2-36.6) 11/07/17 16:02 Sodium 140 mmol/L (137-145) 11/09/17 06:26 Potassium 4.2 mmol/L (3.6-5.0) 11/09/17 06:26 Chloride 104.9 mmol/L (98-107) 11/09/17 06:26 Carbon Dioxide 24 mmol/L (22-30) 11/09/17 06:26 Anion Gap 15 mmol/L 11/09/17 06:26 BUN 14 mg/dL (7-17) 11/09/17 06:26 Creatinine 0.6 mg/dL (0.7-1.2) L 11/09/17 06:26 Estimated GFR > 60 ml/min 11/09/17 06:26 BUN/Creatinine Ratio 23 % 11/09/17 06:26 Glucose 90 mg/dL (65-100) 11/09/17 06:26 POC Glucose 97 (70-105) 11/08/17 17:09 Hemoglobin A1c 6.5 % (4-6) H 11/07/17 23:04 Calcium 8.7 mg/dL (8.4-10.2) 11/09/17 06:26 Total Bilirubin 1.50 mg/dL (0.1-1.2) H 11/08/17 05:12 AST 22 units/L (5-40) 11/08/17 05:12 ALT 12 units/L (7-56) 11/08/17 05:12 Alkaline Phosphatase 57 units/L (35-129) 11/08/17 05:12 Total Protein 6.1 g/dL (6.3-8.2) L 11/08/17 05:12 Albumin 3.6 g/dL (3.9-5) L 11/08/17 05:12 Albumin/Globulin Ratio 1.4 % 11/08/17 05:12
[2017-11-09] MEDS: PULMICORT IH SCH (19:56)
[2017-11-09] MEDS: BROVANA NEBU IH SCH (19:56)
[2017-11-09] MEDS: LOVENOX SUB-Q SCH (22:14)
[2017-11-09] MEDS: MILK OF MAGNESIA PO PRN (22:15)
--- NOTE | 2017-11-10 04:52 | Consultation ---
REFERRED BY: Dr. Paz. REASON FOR CONSULTATION: History of granulosa cell ovarian tumor, stage 4 and pneumothorax. HISTORY OF PRESENT ILLNESS: I saw the patient, 72-year-old female in the medical floor. The patient has malignant granulosa cell tumor of ovary. This was diagnosed about 20 years ago originally as a gynecological pelvic tumor in [place]. Details of this is not clear. From the information available, the patient had hysterectomy and possibly one oophorectomy. In 07/2017, CT-guided biopsy of lung lesions showed tumor recurrence. The patient has been treated with etoposide and carboplatin. The first cycle was given on 09/09/2017 the 2nd was given on 10/07/2017 and third on 11/04/2017. The patient had undergone disconnection on 11/06/2017. She went to [facility] for shortness of breath with slight exertion. She was sent to [facility] where a large left pneumothorax was found. Chest tube has been placed during this admission. I have been asked to evaluate the patient in view of her history and recent chemotherapy. At this time, breathing has improved. No chest pain at this time apart from discomfort at the site of chest tube. No headache, no visual disturbances. No ear discharge. No bleeding issues. No abdominal pain, no vomiting, no diarrhea. 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 PAST SURGICAL HISTORY: Hysterectomy. SOCIAL HISTORY: Nonsmoker. ALLERGIES: PENICILLIN. PRESENT MEDICATIONS: Includes budesonide, Lovenox, lisinopril. PHYSICAL EXAMINATION: VITAL SIGNS: Temperature 98.3, pulse 77, respirations 18, BP 105/67. No pallor, no icterus. No neck lymph nodes. LUNGS: Clear to auscultation anteriorly. Chest tube present. Port present. ABDOMEN: Soft. EXTREMITIES: No calf tenderness. NEUROLOGIC: Alert, awake, oriented. LABORATORY DATA: White cell 4, hemoglobin 11.7, MCV 98, platelet 161, potassium 4.2, creatinine 0.6, bilirubin 1.5. RADIOLOGY: Chest x-ray showed pneumothorax. Repeat one done today shows small left apical pneumothorax and lung lesions. ASSESSMENT AND PLAN: 1. 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 The patient on carboplatin and etoposide cycle 3, was started on and terminated on . 2. Pneumothorax. This may be secondary to the lung lesions. 3. Hypertension. 4. Port-A-Cath present. I will follow the patient during inpatient stay and then in the clinic setting. JOB# [id number] BARBRA/SANDY
[2017-11-10] MEDS: BROVANA NEBU IH SCH ×2 (08:27→20:29)
[2017-11-10] MEDS: PULMICORT IH SCH ×2 (08:27→20:29)
[2017-11-10] MEDS: SODIUM CHLORIDE FLUSH SYRINGE 10 ML IV SCH ×2 (09:30→22:17)
[2017-11-10] MEDS: ZESTRIL PO SCH (10:05)
[2017-11-10] MEDS: PROTONIX PO SCH (10:06)
--- NOTE | 2017-11-10 11:20 | XRay Report ---
FINAL REPORT EXAM: XR CHEST 1V AP HISTORY: Follow up on pneumothorax COMPARISON: Chest radiograph performed on 11/09/2017 TECHNIQUE: Single portable view of the chest FINDINGS: Left-sided chest tube is unchanged in position. Left chest port with tip of the catheter in the superior vena cava. Again seen is a small left apical pneumothorax, decreased in size since the previous study. Unchanged bilateral pulmonary nodules. No acute bony or soft tissue abnormality. IMPRESSION: Small left apical pneumothorax, decreased since the previous study. Unchanged bilateral pulmonary nodules.
--- NOTE | 2017-11-10 13:19 | Progress Note ---
Assessment and Plan Assessment and plan: [place] Salvadorean Language line used with Daughters in law, Alis and Nai at bedside Patient is a 72-year-old Salvadorean speaking woman with a history of ovarian cancer metastatic to lungs sent from outpatient radiology for left-sided pneumothorax. Patient denies shortness of breath and generalized fatigue with exertion for the last 2 days. Also left-sided chest pain which is more with inspiration. Patient received chemotherapy yesterday. She also has a port on the left side. Her lung specialist is Dr. Mendoza and oncologist is Dr. dawson. Family did not want to tell the patient of the ovarian cancer per Nai. 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 Elias Pneumothorax, left, Catamenial type Chest tube inserted in the emergency room Dr. MENDOZA Consulted and to manage, increase suction. serial CXR Ovarian Cancer with mets to the Left Lung cancer Dr. Valentin group consulted On chemotherapy Not sure whether patient has ovarian cancer No pelvic mass on pelvis u/s COPD (chronic obstructive pulmonary disease) Continue duo nebs T2DM (type 2 diabetes mellitus) Continue coverage and metformin Hypertension Continue antihypertensives especially amlodipine 10 mg once a day DVT prophylaxis Continue Lovenox and GI prophylaxis History Interval history: Patient was seen and examined. Follow-up on current diagnosis of PTX. Overnight uneventful. Patient denies any nausea/vomiting or severe headaches. Imaging, nursing note, chart, labs and old chart reviewed. Discussed with patient. Hospitalist Physical - Physical exam Narrative exam: GEN: WDWN, NAD, Awake, Alert, Orientated HEENT: NCAT, EOMI, PERRL, OP Clear NECK: supple, no adenopathy, no thyromegaly, no JVD CVS/HEART: RRR, normal S1S2, pulses present bilaterally CHEST/LUNGS: left chest tube in place but BS are good bilaterally, Symmetrical chest expansion, good air entry bilaterally GI/Abdomen: soft, NTND, good bowel sounds, no guarding or rebound /Bladder: no suprapubic tenderness, no CVA or paraspinal tenderness EXT/Skin: no c/c/e, no obvious rash MSK: FROM x 4 Neuro: CN 2-12 grossly intact, no new focal deficits Psych: calm - Constitutional Vitals: Temp Pulse Resp BP Pulse Ox 97.8 F 85 18 111/64 95 11/10/17 10:16 11/10/17 10:16 11/10/17 10:16 11/10/17 10:16 11/10/17 10:16 General appearance: Present: well-nourished Results - Labs CBC & Chem 7: 11/09/17 06:26 11/09/17 06:26 Labs: Laboratory Last Values WBC 4.6 K/mm3 (4.5-11.0) 11/09/17 06:26 RBC 3.42 M/mm3 (3.65-5.03) L 11/09/17 06:26 Hgb 11.7 gm/dl (10.1-14.3) 11/09/17 06:26 Hct 33.3 % (30.3-42.9) 11/09/17 06:26 MCV 98 fl (79-97) H 11/09/17 06:26 MCH 34 pg (28-32) H 11/09/17 06:26 MCHC 35 % (30-34) H 11/09/17 06:26 RDW 14.3 % (13.2-15.2) 11/09/17 06:26 Plt Count 161 K/mm3 (140-440) 11/09/17 06:26 Lymph % (Auto) 33.2 % (13.4-35.0) 11/08/17 05:12 [place] % (Auto) 1.1 % (0.0-7.3) 11/08/17 05:12 Eos % (Auto) 0.5 % (0.0-4.3) 11/08/17 05:12 Baso % (Auto) 0.2 % (0.0-1.8) 11/08/17 05:12 Lymph # 2.4 K/mm3 (1.2-5.4) 11/08/17 05:12 [place] # 0.1 K/mm3 (0.0-0.8) 11/08/17 05:12 Eos # 0.0 K/mm3 (0.0-0.4) 11/08/17 05:12 Baso # 0.0 K/mm3 (0.0-0.1) 11/08/17 05:12 Seg Neutrophils % 65.0 % (40.0-70.0) 11/08/17 05:12 Seg Neutrophils # 4.6 K/mm3 (1.8-7.7) 11/08/17 05:12 PT 13.7 Sec. (12.2-14.9) 11/07/17 16:02 INR 1.00 (0.87-1.13) 11/07/17 16:02 APTT 24.4 Sec. (24.2-36.6) 11/07/17 16:02 POC ABG pH 7.465 (7.35-7.45) H 11/10/17 12:16 POC ABG pCO2 34.5 (35-45) L 11/10/17 12:16 POC ABG pO2 60 (80-105) L 11/10/17 12:16 POC ABG HCO3 24.8 11/10/17 12:16 POC ABG Total CO2 26 11/10/17 12:16 POC ABG O2 Sat 92 11/10/17 12:16 POC ABG Base Excess 1 11/10/17 12:16 FiO2 21 % 11/10/17 12:16 Sodium 140 mmol/L (137-145) 11/09/17 06:26 Potassium 4.2 mmol/L (3.6-5.0) 11/09/17 06:26 Chloride 104.9 mmol/L (98-107) 11/09/17 06:26 Carbon Dioxide 24 mmol/L (22-30) 11/09/17 06:26 Anion Gap 15 mmol/L 11/09/17 06:26 BUN 14 mg/dL (7-17) 11/09/17 06:26 Creatinine 0.6 mg/dL (0.7-1.2) L 11/09/17 06:26 Estimated GFR > 60 ml/min 11/09/17 06:26 BUN/Creatinine Ratio 23 % 11/09/17 06:26 Glucose 90 mg/dL (65-100) 11/09/17 06:26 POC Glucose 97 (70-105) 11/08/17 17:09 Hemoglobin A1c 6.5 % (4-6) H 11/07/17 23:04 Calcium 8.7 mg/dL (8.4-10.2) 11/09/17 06:26 Total Bilirubin 1.50 mg/dL (0.1-1.2) H 11/08/17 05:12 AST 22 units/L (5-40) 11/08/17 05:12 ALT 12 units/L (7-56) 11/08/17 05:12 Alkaline Phosphatase 57 units/L (35-129) 11/08/17 05:12 Total Protein 6.1 g/dL (6.3-8.2) L 11/08/17 05:12 Albumin 3.6 g/dL (3.9-5) L 11/08/17 05:12 Albumin/Globulin Ratio 1.4 % 11/08/17 05:12
--- NOTE | 2017-11-10 14:07 | Progress Note ---
Assessment and Plan Patient alert, awake. Patient is 4 litres O2 via nasal canula. O2 saturation 95% .No acute respiratory distress.Patients todays chest xray reported small left apical pneumothorax better than yesterday .Continue chest tube suction. - Patient Problems (1) Pneumothorax, left Current Visit: Yes Status: Acute Plan to address problem: No acute respiratory distress.Patients todays chest xray reported small left apical pneumothorax better than yesterday . (2) Granulosa cell tumor Current Visit: Yes Status: Acute Plan to address problem: Percutaneous needle Biopsy of chest lesion reported Granulosa cell tumor of Ovarian Origin. (3) Hypertension Current Visit: Yes Status: Chronic Qualifiers: Hypertension type: essential hypertension Qualified Code(s): I10 - Essential (primary) hypertension Plan to address problem: Management as per primary care. Subjective Date of service: 11/10/17 Interval history: Patient alert, awake. Patient is 4 litres O2 via nasal canula. O2 saturation 95% .No acute respiratory distress.Patients todays chest xray reported small left apical pneumothorax better than yesterday .Continue chest tube suction. Objective Vital Signs - 12hr 11/10/17 11/10/17 11/10/17 03:29 10:05 10:16 Temperature 98.2 F 97.8 F Pulse Rate 68 68 85 Respiratory 18 18 Rate Blood Pressure 111/72 118/68 111/64 O2 Sat by Pulse 95 95 Oximetry Constitutional: no acute distress, alert Eyes: non-icteric ENT: oropharynx moist Neck: supple, no JVD Ascultation: Bilateral: rhonchi, other (Bilateral breath sounds heard after chest tube placement.) Cardiovascular: regular rate and rhythm Gastrointestinal: normoactive bowel sounds, soft Integumentary: normal Extremities: no cyanosis, no edema Neurologic: normal mental status, non-focal exam, pupils equal and round, CN II- XII normal Psychiatric: mood appropriate CBC and BMP: 11/09/17 06:26 11/09/17 06:26 ABG, PT/INR, D-dimer: ABG POC ABG pH 7.465 (7.35-7.45) H 11/10/17 12:16 POC ABG pCO2 34.5 (35-45) L 11/10/17 12:16 POC ABG pO2 60 (80-105) L 11/10/17 12:16 POC ABG HCO3 24.8 11/10/17 12:16 POC ABG Total CO2 26 11/10/17 12:16 POC ABG O2 Sat 92 11/10/17 12:16 PT/INR, D-dimer PT 13.7 Sec. (12.2-14.9) 11/07/17 16:02 INR 1.00 (0.87-1.13) 11/07/17 16:02 Abnormal lab findings: Abnormal Labs 11/07/17 11/07/17 11/07/17 16:02 16:02 23:04 RBC MCV 98 H MCH 34 H MCHC Seg Neutrophils % 73.4 H POC ABG pH POC ABG pCO2 POC ABG pO2 Carbon Dioxide 21 L BUN 22 H Creatinine Glucose 107 H POC Glucose Hemoglobin A1c 6.5 H Total Bilirubin Total Protein Albumin 11/08/17 11/08/17 11/08/17 05:12 05:12 11:15 RBC MCV 98 H MCH 34 H MCHC Seg Neutrophils % POC ABG pH POC ABG pCO2 POC ABG pO2 Carbon Dioxide BUN 20 H Creatinine 0.6 L Glucose POC Glucose 151 H Hemoglobin A1c Total Bilirubin 1.50 H Total Protein 6.1 L Albumin 3.6 L 11/09/17 11/09/17 11/10/17 06:26 06:26 12:16 RBC 3.42 L MCV 98 H MCH 34 H MCHC 35 H Seg Neutrophils % POC ABG pH 7.465 H POC ABG pCO2 34.5 L POC ABG pO2 60 L Carbon Dioxide BUN Creatinine 0.6 L Glucose POC Glucose Hemoglobin A1c Total Bilirubin Total Protein Albumin Chest x-ray: report reviewed (Reported small left apical pneumothorax,better than yesterdays chest xray.), image reviewed
--- NOTE | 2017-11-10 19:45 | Hem/Onc Progress Note ---
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 The patient on carboplatin and etoposide cycle 3, was started on and terminated on . 2. left Pneumothorax. This may be secondary to the lung lesions. s/p chest tube 3. Hypertension. 4. Port-A-Cath present. I will follow the patient during inpatient stay and then in the clinic setting. 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 Interval history: chest tube area pain Objective - Constitutional Vitals: Last Vital Signs Temp 97.8 F 11/10/17 10:16 Pulse 63 11/10/17 12:00 Resp 18 11/10/17 10:16 BP 111/64 11/10/17 10:16 Pulse Ox 95 11/10/17 10:16 Pain Intensity (0-10): 1/10 General appearance: mild distress Performance status: 2- selfcare, ambulatory - EENT Eyes: PERRL ENT: clear oral mucosa Lymph node exam: negative cervical, negative supraclavicular - Neck Neck: supple - Respiratory Respiratory: left: other (chest tube), bilateral: CTA (anteriorly) - Cardiovascular Heart Sounds: Present: S1 & S2 Extremities: No edema - Gastrointestinal General gastrointestinal: Present: soft, non-tender Rectal Exam: deferred - Genitourinary Female genitourinary: Present: deferred - Musculoskeletal Musculoskeletal: strength equal bilaterally - Neurologic Neurologic: moves all extremities - Psychiatric Psychiatric: appropriate mood/affect - Labs Lab Results: Laboratory Results - last 24 hr 11/10/17 12:16 POC ABG pH 7.465 H POC ABG pCO2 34.5 L POC ABG pO2 60 L POC ABG HCO3 24.8 POC ABG Total CO2 26 POC ABG O2 Sat 92 POC ABG Base Excess 1 FiO2 21
[2017-11-10] MEDS: LOVENOX SUB-Q SCH (22:17)
--- NOTE | 2017-11-11 07:25 | Hem/Onc Progress Note ---
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 The patient on carboplatin and etoposide cycle 3, was started on and terminated on . 2. left Pneumothorax. This may be secondary to the lung lesions. s/p chest tube 3. Hypertension. 4. Port-A-Cath present. I will follow the patient during inpatient stay and then in the clinic setting. d/w pt reg CXR from 11/10 - Patient Problems (1) Granulosa cell tumor Current Visit: Yes Status: Acute Subjective Date of service: 11/11/17 Principal diagnosis: granulosa cell tumor with lung mets Interval history: feeling better Objective - Constitutional Vitals: Last Vital Signs Temp 97.6 F 11/11/17 04:32 Pulse 71 11/11/17 04:32 Resp 18 11/11/17 04:32 BP 100/53 11/11/17 04:32 Pulse Ox 98 11/11/17 04:32 Pain Intensity (0-10): denies any pain General appearance: no acute distress Performance status: 2- selfcare, ambulatory - EENT Eyes: PERRL ENT: clear oral mucosa Lymph node exam: negative cervical, negative supraclavicular - Respiratory Respiratory effort: Positive: normal Respiratory: bilateral: CTA - Cardiovascular Heart Sounds: Present: S1 & S2 Extremities: No edema - Gastrointestinal General gastrointestinal: Present: soft, non-tender Rectal Exam: deferred - Genitourinary Female genitourinary: Present: deferred - Musculoskeletal Musculoskeletal: strength equal bilaterally - Neurologic Neurologic: moves all extremities - Psychiatric Psychiatric: appropriate mood/affect - Labs Lab Results: Laboratory Results - last 24 hr 11/10/17 12:16 POC ABG pH 7.465 H POC ABG pCO2 34.5 L POC ABG pO2 60 L POC ABG HCO3 24.8 POC ABG Total CO2 26 POC ABG O2 Sat 92 POC ABG Base Excess 1 FiO2 21
--- NOTE | 2017-11-11 07:47 | Progress Note ---
Assessment and Plan Assessment and plan: 2U Andorran Language line used with Daughters in law, Alis and Nai at bedside Patient is a 72-year-old Andorran speaking woman with a history of ovarian cancer metastatic to lungs sent from outpatient radiology for left-sided pneumothorax. Patient denies shortness of breath and generalized fatigue with exertion for the last 2 days. Also left-sided chest pain which is more with inspiration. Patient received chemotherapy yesterday. She also has a port on the left side. Her lung specialist is Dr. Mendoza and oncologist is Dr. dawson. Family did not want to tell the patient of the ovarian cancer per Nai. 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 Elias Pneumothorax, left related to lung mets Chest tube inserted in the emergency room Dr. MENDOZA Consulted and to manage, increase suction. serial CXR Ovarian Cancer with mets to the Left Lung cancer Dr. Valentin group consulted On chemotherapy Not sure whether patient has ovarian cancer No pelvic mass on pelvis u/s COPD (chronic obstructive pulmonary disease) Continue duo nebs T2DM (type 2 diabetes mellitus) Continue coverage and metformin Hypertension Continue antihypertensives especially amlodipine 10 mg once a day DVT prophylaxis Continue Lovenox and GI prophylaxis Disposition: continue inpatient, d/c once PTX resolved and chest tube removed History Interval history: Patient was seen and examined. Follow-up on current diagnosis of PTX. Overnight uneventful. Patient denies any nausea/vomiting or severe headaches. Imaging, nursing note, chart, labs and old chart reviewed. Discussed with patient. Hospitalist Physical - Physical exam Narrative exam: GEN: WDWN, NAD, Awake, Alert, Orientated HEENT: NCAT, EOMI, PERRL, OP Clear NECK: supple, no adenopathy, no thyromegaly, no JVD CVS/HEART: RRR, normal S1S2, pulses present bilaterally CHEST/LUNGS: left chest tube in place but BS are good bilaterally, Symmetrical chest expansion, good air entry bilaterally GI/Abdomen: soft, NTND, good bowel sounds, no guarding or rebound /Bladder: no suprapubic tenderness, no CVA or paraspinal tenderness EXT/Skin: no c/c/e, no obvious rash MSK: FROM x 4 Neuro: CN 2-12 grossly intact, no new focal deficits Psych: calm - Constitutional Vitals: Temp Pulse Resp BP Pulse Ox 97.6 F 71 18 100/53 98 11/11/17 04:32 11/11/17 04:32 11/11/17 04:32 11/11/17 04:32 11/11/17 04:32 General appearance: Present: well-nourished Results - Labs CBC & Chem 7: 11/09/17 06:26 11/09/17 06:26 Labs: Laboratory Last Values WBC 4.6 K/mm3 (4.5-11.0) 11/09/17 06:26 RBC 3.42 M/mm3 (3.65-5.03) L 11/09/17 06:26 Hgb 11.7 gm/dl (10.1-14.3) 11/09/17 06:26 Hct 33.3 % (30.3-42.9) 11/09/17 06:26 MCV 98 fl (79-97) H 11/09/17 06:26 MCH 34 pg (28-32) H 11/09/17 06:26 MCHC 35 % (30-34) H 11/09/17 06:26 RDW 14.3 % (13.2-15.2) 11/09/17 06:26 Plt Count 161 K/mm3 (140-440) 11/09/17 06:26 Lymph % (Auto) 33.2 % (13.4-35.0) 11/08/17 05:12 [place] % (Auto) 1.1 % (0.0-7.3) 11/08/17 05:12 Eos % (Auto) 0.5 % (0.0-4.3) 11/08/17 05:12 Baso % (Auto) 0.2 % (0.0-1.8) 11/08/17 05:12 Lymph # 2.4 K/mm3 (1.2-5.4) 11/08/17 05:12 [place] # 0.1 K/mm3 (0.0-0.8) 11/08/17 05:12 Eos # 0.0 K/mm3 (0.0-0.4) 11/08/17 05:12 Baso # 0.0 K/mm3 (0.0-0.1) 11/08/17 05:12 Seg Neutrophils % 65.0 % (40.0-70.0) 11/08/17 05:12 Seg Neutrophils # 4.6 K/mm3 (1.8-7.7) 11/08/17 05:12 PT 13.7 Sec. (12.2-14.9) 11/07/17 16:02 INR 1.00 (0.87-1.13) 11/07/17 16:02 APTT 24.4 Sec. (24.2-36.6) 11/07/17 16:02 POC ABG pH 7.465 (7.35-7.45) H 11/10/17 12:16 POC ABG pCO2 34.5 (35-45) L 11/10/17 12:16 POC ABG pO2 60 (80-105) L 11/10/17 12:16 POC ABG HCO3 24.8 11/10/17 12:16 POC ABG Total CO2 26 11/10/17 12:16 POC ABG O2 Sat 92 11/10/17 12:16 POC ABG Base Excess 1 11/10/17 12:16 FiO2 21 % 11/10/17 12:16 Sodium 140 mmol/L (137-145) 11/09/17 06:26 Potassium 4.2 mmol/L (3.6-5.0) 11/09/17 06:26 Chloride 104.9 mmol/L (98-107) 11/09/17 06:26 Carbon Dioxide 24 mmol/L (22-30) 11/09/17 06:26 Anion Gap 15 mmol/L 11/09/17 06:26 BUN 14 mg/dL (7-17) 11/09/17 06:26 Creatinine 0.6 mg/dL (0.7-1.2) L 11/09/17 06:26 Estimated GFR > 60 ml/min 11/09/17 06:26 BUN/Creatinine Ratio 23 % 11/09/17 06:26 Glucose 90 mg/dL (65-100) 11/09/17 06:26 POC Glucose 97 (70-105) 11/08/17 17:09 Hemoglobin A1c 6.5 % (4-6) H 11/07/17 23:04 Calcium 8.7 mg/dL (8.4-10.2) 11/09/17 06:26 Total Bilirubin 1.50 mg/dL (0.1-1.2) H 11/08/17 05:12 AST 22 units/L (5-40) 11/08/17 05:12 ALT 12 units/L (7-56) 11/08/17 05:12 Alkaline Phosphatase 57 units/L (35-129) 11/08/17 05:12 Total Protein 6.1 g/dL (6.3-8.2) L 11/08/17 05:12 Albumin 3.6 g/dL (3.9-5) L 11/08/17 05:12 Albumin/Globulin Ratio 1.4 % 11/08/17 05:12
[2017-11-11] MEDS: PULMICORT IH SCH ×2 (08:21→20:14)
[2017-11-11] MEDS: BROVANA NEBU IH SCH ×2 (08:21→20:14)
--- NOTE | 2017-11-11 11:51 | Progress Note ---
Assessment and Plan Pneumothorax, left related to lung mets Ovarian Cancer with mets to the Left Lung cancer COPD (chronic obstructive pulmonary disease) T2DM (type 2 diabetes mellitus) Hypertension -Supplemental oxygen to keep O2 sats>90% -Place pleural drain to water seal in the morning and get CXR 2 hours post water seal. -CT chest to evaluate progression of metastatic disease, she is s/p chemotherapy -PT/OT to evaluate and treat -Bronchodilators per protocol -VTE prophylaxis -Chest tube care and management -Blood pressure control -Glycemic control Updated family at the bedside. Subjective Date of service: 11/11/17 Principal diagnosis: granulosa cell tumor with lung mets Interval history: f/up: Hypoxemic respiraotry failure, Left pneumothorax, metastic lung disease, h /o COPD Seen and examined. Vitals, labs, medications, chart and imaging reviewed. Left pleural drain to negative 20cm suction. Tolerating it well. She denies any chest pain, no shortness of breath, no fevers or chills. On supplemental oxygen, 3L [place] Family at the bedside. Objective Vital Signs - 12hr 11/11/17 11/11/17 11/11/17 00:30 04:00 04:32 Temperature 98.3 F 97.6 F Pulse Rate 74 63 71 Pulse Rate [ Anterior Bilateral Throughout] Respiratory 18 18 Rate Respiratory Rate [Anterior Bilateral Throughout] Blood Pressure 95/49 100/53 Blood Pressure [Left] O2 Sat by Pulse 91 98 Oximetry 11/11/17 11/11/17 11/11/17 07:17 08:23 08:30 Temperature 98.0 F Pulse Rate 65 Pulse Rate [ 80 84 Anterior Bilateral Throughout] Respiratory 18 Rate Respiratory 18 18 Rate [Anterior Bilateral Throughout] Blood Pressure 115/68 Blood Pressure [Left] O2 Sat by Pulse 99 95 Oximetry 11/11/17 10:26 Temperature 97.8 F Pulse Rate 77 Pulse Rate [ Anterior Bilateral Throughout] Respiratory 18 Rate Respiratory Rate [Anterior Bilateral Throughout] Blood Pressure Blood Pressure 111/67 [Left] O2 Sat by Pulse 94 Oximetry Constitutional: no acute distress, alert, other Eyes: non-icteric ENT: oropharynx moist Neck: supple, no JVD Effort: normal, other (Left pleural drain in place, no air leak) Ascultation: Bilateral: rhonchi, other (Bilateral breath sounds heard after chest tube placement.) Cardiovascular: regular rate and rhythm, other (S1,S2, no murmurs, gallops or rubs) Gastrointestinal: normoactive bowel sounds, soft, non-distended, other (No hepatosplenomegaly,) Integumentary: normal Extremities: no cyanosis, no edema, pulses normal Neurologic: normal mental status, non-focal exam, pupils equal and round, CN II- XII normal Psychiatric: mood appropriate, affect normal CBC and BMP: 11/09/17 06:26 11/09/17 06:26 ABG, PT/INR, D-dimer: ABG POC ABG pH 7.465 (7.35-7.45) H 11/10/17 12:16 POC ABG pCO2 34.5 (35-45) L 11/10/17 12:16 POC ABG pO2 60 (80-105) L 11/10/17 12:16 POC ABG HCO3 24.8 11/10/17 12:16 POC ABG Total CO2 26 11/10/17 12:16 POC ABG O2 Sat 92 11/10/17 12:16 PT/INR, D-dimer PT 13.7 Sec. (12.2-14.9) 11/07/17 16:02 INR 1.00 (0.87-1.13) 11/07/17 16:02 Abnormal lab findings: Abnormal Labs 11/07/17 11/07/17 11/07/17 16:02 16:02 23:04 RBC MCV 98 H MCH 34 H MCHC Seg Neutrophils % 73.4 H POC ABG pH POC ABG pCO2 POC ABG pO2 Carbon Dioxide 21 L BUN 22 H Creatinine Glucose 107 H POC Glucose Hemoglobin A1c 6.5 H Total Bilirubin Total Protein Albumin 11/08/17 11/08/17 11/08/17 05:12 05:12 11:15 RBC MCV 98 H MCH 34 H MCHC Seg Neutrophils % POC ABG pH POC ABG pCO2 POC ABG pO2 Carbon Dioxide BUN 20 H Creatinine 0.6 L Glucose POC Glucose 151 H Hemoglobin A1c Total Bilirubin 1.50 H Total Protein 6.1 L Albumin 3.6 L 11/09/17 11/09/17 11/10/17 06:26 06:26 12:16 RBC 3.42 L MCV 98 H MCH 34 H MCHC 35 H Seg Neutrophils % POC ABG pH 7.465 H POC ABG pCO2 34.5 L POC ABG pO2 60 L Carbon Dioxide BUN Creatinine 0.6 L Glucose POC Glucose Hemoglobin A1c Total Bilirubin Total Protein Albumin Chest x-ray: image reviewed
[2017-11-11] MEDS: ZESTRIL PO SCH (11:54)
[2017-11-11] MEDS: PROTONIX PO SCH (11:54)
--- NOTE | 2017-11-11 15:04 | XRay Report ---
AP CHEST: HISTORY: Pneumothorax, chest tube position Left chest tube is unchanged in position since 11/10/17. No residual or recurrent pneumothorax is detected. Bilateral pulmonary masses are again noted and unchanged. No evidence for pneumonia or large pleural effusion. Heart size is within normal limits. IMPRESSION: No change. No evidence for recurrent left pneumothorax.
[2017-11-11] MEDS: LOVENOX SUB-Q SCH (22:51)
[2017-11-11] MEDS: SODIUM CHLORIDE FLUSH SYRINGE 10 ML IV SCH (22:55)
--- NOTE | 2017-11-12 06:59 | Hem/Onc Progress Note ---
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 The patient on carboplatin and etoposide cycle 3, was started on and terminated on . 2. left Pneumothorax. This may be secondary to the lung lesions. s/p chest tube 3. Hypertension. 4. Port-A-Cath present. I will follow the patient during inpatient stay and then in the clinic setting. - Patient Problems (1) Granulosa cell tumor Current Visit: Yes Status: Acute Subjective Date of service: 11/12/17 Principal diagnosis: granulosa cell tumor - ovary with lung mets Interval history: feeling better not SOB no chest pain d/w daughter still has chest tube Objective - Constitutional Vitals: Last Vital Signs Temp 97.6 F 11/12/17 04:30 Pulse 65 11/12/17 04:30 Resp 18 11/12/17 04:30 BP 114/27 11/12/17 04:30 Pulse Ox 96 11/12/17 04:30 Pain Intensity (0-10): denies any pain General appearance: no acute distress Performance status: 2- selfcare, ambulatory - EENT Eyes: PERRL ENT: clear oral mucosa Lymph node exam: negative cervical, negative supraclavicular - Respiratory Respiratory effort: Positive: normal Respiratory: bilateral: CTA, negative: other (left side chest tube) - Cardiovascular Heart Sounds: Present: S1 & S2 Extremities: No edema Extremity abnormal: edema - Gastrointestinal General gastrointestinal: Present: soft, non-tender Rectal Exam: deferred - Genitourinary Female genitourinary: Present: deferred - Musculoskeletal Musculoskeletal: strength equal bilaterally - Neurologic Neurologic: moves all extremities - Psychiatric Psychiatric: appropriate mood/affect
--- NOTE | 2017-11-12 08:16 | XRay Report ---
Comparison of the current study with the prior examination of 11/11/17 at 1443 hrs shows no appreciable interval change.
[2017-11-12] MEDS: SODIUM CHLORIDE FLUSH SYRINGE 10 ML IV SCH ×2 (09:34→22:49)
[2017-11-12] MEDS: ZESTRIL PO SCH (09:35)
[2017-11-12] MEDS: PROTONIX PO SCH (09:35)
[2017-11-12] MEDS: BROVANA NEBU IH SCH ×2 (10:53→23:09)
[2017-11-12] MEDS: PULMICORT IH SCH ×2 (10:54→23:09)
--- NOTE | 2017-11-12 12:22 | XRay Report ---
AP CHEST: HISTORY: Left pneumothorax, waterseal Left chest tube is unchanged in position. A tiny left apical pneumothorax is identified measuring 7 mm in thickness. The remainder of the exam is unchanged since earlier today at 0745 hrs. IMPRESSION: Tiny left apical pneumothorax.
--- NOTE | 2017-11-12 14:14 | Progress Note ---
Assessment and Plan Assessment and plan: [employer] Lithuanian Language line used with Daughters in law, Alis and Nai at bedside Patient is a 72-year-old Lithuanian speaking woman with a history of ovarian cancer metastatic to lungs sent from outpatient radiology for left-sided pneumothorax. Patient denies shortness of breath and generalized fatigue with exertion for the last 2 days. Also left-sided chest pain which is more with inspiration. Patient received chemotherapy yesterday. She also has a port on the left side. Her lung specialist is Dr. Grant and oncologist is Dr. dawson. Family did not want to tell the patient of the ovarian cancer per Nai. 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 Chanel Pneumothorax, left related to lung mets -Chest tube inserted in the emergency room -chest tube put to water seal, and repeat CXR shows resolving PTX -plan to remove CT and possible dc tomorrow Ovarian Cancer with mets to the Left Lung cancer PMs group consulted On chemotherapy Not sure whether patient has ovarian cancer No pelvic mass on pelvis u/s COPD (chronic obstructive pulmonary disease) Continue duo nebs T2DM (type 2 diabetes mellitus) Continue coverage and metformin Hypertension Continue antihypertensives especially amlodipine 10 mg once a day DVT prophylaxis Continue Lovenox and GI prophylaxis Disposition: continue inpatient, d/c once PTX resolved and chest tube removed History Interval history: Review of systems Constitutional: No fevers, no malaise, no joint pains CVS: No chest pain, no orthopnea, no dyspnea on exertion, no pedal edema GI: No abdominal pain, no diarrhea, no vomiting, no constipation Respiratory: No shortness of breath, no wheezing, no coughing Hospitalist Physical - Physical exam Narrative exam: General.: Appears well, no distress, nontoxic HEENT: Moist mucous membranes, extraocular muscles intact, no lymphadenopathy Neck: supple Cardiac: S1-S2 heard Lungs: clear to auscultation bilaterally Abdomen: soft , nontender, nondistended, bowel sounds positive Extremities: no edema clubbing or cyanosis Skin: no rash or lesions Neurologic: no gross focal deficits Psych: appropriate behavior, appropriate mood, corporative, judgment intact - Constitutional Vitals: Temp Pulse Resp BP Pulse Ox 98.0 F 85 20 98/60 95 11/12/17 08:12 11/12/17 10:00 11/12/17 10:00 11/12/17 09:35 11/12/17 10:00 General appearance: Present: well-nourished Results - Labs CBC & Chem 7: 11/09/17 06:26 11/09/17 06:26 Labs: Laboratory Last Values WBC 4.6 K/mm3 (4.5-11.0) 11/09/17 06:26 RBC 3.42 M/mm3 (3.65-5.03) L 11/09/17 06:26 Hgb 11.7 gm/dl (10.1-14.3) 11/09/17 06:26 Hct 33.3 % (30.3-42.9) 11/09/17 06:26 MCV 98 fl (79-97) H 11/09/17 06:26 MCH 34 pg (28-32) H 11/09/17 06:26 MCHC 35 % (30-34) H 11/09/17 06:26 RDW 14.3 % (13.2-15.2) 11/09/17 06:26 Plt Count 161 K/mm3 (140-440) 11/09/17 06:26 Lymph % (Auto) 33.2 % (13.4-35.0) 11/08/17 05:12 [place] % (Auto) 1.1 % (0.0-7.3) 11/08/17 05:12 Eos % (Auto) 0.5 % (0.0-4.3) 11/08/17 05:12 Baso % (Auto) 0.2 % (0.0-1.8) 11/08/17 05:12 Lymph # 2.4 K/mm3 (1.2-5.4) 11/08/17 05:12 [place] # 0.1 K/mm3 (0.0-0.8) 11/08/17 05:12 Eos # 0.0 K/mm3 (0.0-0.4) 11/08/17 05:12 Baso # 0.0 K/mm3 (0.0-0.1) 11/08/17 05:12 Seg Neutrophils % 65.0 % (40.0-70.0) 11/08/17 05:12 Seg Neutrophils # 4.6 K/mm3 (1.8-7.7) 11/08/17 05:12 PT 13.7 Sec. (12.2-14.9) 11/07/17 16:02 INR 1.00 (0.87-1.13) 11/07/17 16:02 APTT 24.4 Sec. (24.2-36.6) 11/07/17 16:02 POC ABG pH 7.465 (7.35-7.45) H 11/10/17 12:16 POC ABG pCO2 34.5 (35-45) L 11/10/17 12:16 POC ABG pO2 60 (80-105) L 11/10/17 12:16 POC ABG HCO3 24.8 11/10/17 12:16 POC ABG Total CO2 26 11/10/17 12:16 POC ABG O2 Sat 92 11/10/17 12:16 POC ABG Base Excess 1 11/10/17 12:16 FiO2 21 % 11/10/17 12:16 Sodium 140 mmol/L (137-145) 11/09/17 06:26 Potassium 4.2 mmol/L (3.6-5.0) 11/09/17 06:26 Chloride 104.9 mmol/L (98-107) 11/09/17 06:26 Carbon Dioxide 24 mmol/L (22-30) 11/09/17 06:26 Anion Gap 15 mmol/L 11/09/17 06:26 BUN 14 mg/dL (7-17) 11/09/17 06:26 Creatinine 0.6 mg/dL (0.7-1.2) L 11/09/17 06:26 Estimated GFR > 60 ml/min 11/09/17 06:26 BUN/Creatinine Ratio 23 % 11/09/17 06:26 Glucose 90 mg/dL (65-100) 11/09/17 06:26 POC Glucose 97 (70-105) 11/08/17 17:09 Hemoglobin A1c 6.5 % (4-6) H 11/07/17 23:04 Calcium 8.7 mg/dL (8.4-10.2) 11/09/17 06:26 Total Bilirubin 1.50 mg/dL (0.1-1.2) H 11/08/17 05:12 AST 22 units/L (5-40) 11/08/17 05:12 ALT 12 units/L (7-56) 11/08/17 05:12 Alkaline Phosphatase 57 units/L (35-129) 11/08/17 05:12 Total Protein 6.1 g/dL (6.3-8.2) L 11/08/17 05:12 Albumin 3.6 g/dL (3.9-5) L 11/08/17 05:12 Albumin/Globulin Ratio 1.4 % 11/08/17 05:12
--- NOTE | 2017-11-12 17:33 | Progress Note ---
Assessment and Plan Pneumothorax, left related to lung mets Ovarian Cancer with mets to the Left Lung cancer COPD (chronic obstructive pulmonary disease) T2DM (type 2 diabetes mellitus) Hypertension -Supplemental oxygen to keep O2 sats>90% -Place pleural drain to water seal in the morning and get CXR 2 hours post water seal, shows a small apical PTX -CT chest to evaluate residual pneumothorax -PT/OT to evaluate and treat -Bronchodilators per protocol -VTE prophylaxis -Chest tube care and management -Blood pressure control -Glycemic control Updated family at the bedside. Subjective Date of service: 11/12/17 Principal diagnosis: granulosa cell tumor - ovary with lung mets Interval history: f/up: Hypoxemic respiraotry failure, Left pneumothorax, metastic lung disease, h /o COPD Seen and examined. Vitals, labs, medications, chart and imaging reviewed. Left pleural drain to negative 20cm suction. Tolerating it well. She denies any chest pain, no shortness of breath, no fevers or chills. On supplemental oxygen, 3L [place] Family at the bedside. Objective Vital Signs - 12hr 11/12/17 11/12/17 11/12/17 08:12 08:13 09:35 Temperature 98.0 F Pulse Rate 72 Pulse Rate [ Anterior Bilateral Throughout] Pulse Rate [ Throughout] Respiratory 18 Rate Respiratory Rate [Anterior Bilateral Throughout] Respiratory Rate [ Throughout] Blood Pressure 98/60 98/60 98/60 O2 Sat by Pulse Oximetry 11/12/17 11/12/17 10:00 12:00 Temperature Pulse Rate 67 Pulse Rate [ 85 Anterior Bilateral Throughout] Pulse Rate [ 88 Throughout] Respiratory Rate Respiratory 20 Rate [Anterior Bilateral Throughout] Respiratory 18 Rate [ Throughout] Blood Pressure O2 Sat by Pulse 95 Oximetry Constitutional: no acute distress, alert, other Eyes: non-icteric ENT: oropharynx moist Neck: supple, no JVD Effort: normal, other (Left pleural drain in place, no air leak) Ascultation: Bilateral: rhonchi, other (Bilateral breath sounds heard after chest tube placement.) Cardiovascular: regular rate and rhythm, other (S1,S2, no murmurs, gallops or rubs) Gastrointestinal: normoactive bowel sounds, soft, non-distended, other (No hepatosplenomegaly,) Integumentary: normal Extremities: no cyanosis, no edema, pulses normal Neurologic: normal mental status, non-focal exam, pupils equal and round, CN II- XII normal Psychiatric: mood appropriate, affect normal CBC and BMP: 11/09/17 06:26 11/09/17 06:26 ABG, PT/INR, D-dimer: ABG POC ABG pH 7.465 (7.35-7.45) H 11/10/17 12:16 POC ABG pCO2 34.5 (35-45) L 11/10/17 12:16 POC ABG pO2 60 (80-105) L 11/10/17 12:16 POC ABG HCO3 24.8 11/10/17 12:16 POC ABG Total CO2 26 11/10/17 12:16 POC ABG O2 Sat 92 11/10/17 12:16 PT/INR, D-dimer PT 13.7 Sec. (12.2-14.9) 11/07/17 16:02 INR 1.00 (0.87-1.13) 11/07/17 16:02 Abnormal lab findings: Abnormal Labs 11/07/17 11/07/17 11/07/17 16:02 16:02 23:04 RBC MCV 98 H MCH 34 H MCHC Seg Neutrophils % 73.4 H POC ABG pH POC ABG pCO2 POC ABG pO2 Carbon Dioxide 21 L BUN 22 H Creatinine Glucose 107 H POC Glucose Hemoglobin A1c 6.5 H Total Bilirubin Total Protein Albumin 11/08/17 11/08/17 11/08/17 05:12 05:12 11:15 RBC MCV 98 H MCH 34 H MCHC Seg Neutrophils % POC ABG pH POC ABG pCO2 POC ABG pO2 Carbon Dioxide BUN 20 H Creatinine 0.6 L Glucose POC Glucose 151 H Hemoglobin A1c Total Bilirubin 1.50 H Total Protein 6.1 L Albumin 3.6 L 11/09/17 11/09/17 11/10/17 06:26 06:26 12:16 RBC 3.42 L MCV 98 H MCH 34 H MCHC 35 H Seg Neutrophils % POC ABG pH 7.465 H POC ABG pCO2 34.5 L POC ABG pO2 60 L Carbon Dioxide BUN Creatinine 0.6 L Glucose POC Glucose Hemoglobin A1c Total Bilirubin Total Protein Albumin
--- NOTE | 2017-11-12 20:20 | Cat Scan Report ---
FINAL REPORT PROCEDURE: CT CHEST WO CON TECHNIQUE: Computerized axial tomography of the chest was performed without contrast material. This study is performed without intravenous contrast and the sensitivity for pathology, including neoplasms, adenopathy, abscess, pulmonary embolism and aortic dissection, is reduced. HISTORY: apical pneumothorax COMPARISON: 11/10/2017 TECHNICAL QUALITY: Satisfactory. FINDINGS: The the heart size is normal. There is no pericardial effusion. The there are multiple bilateral pulmonary masses consistent with metastatic malignancy. Is there is consolidation at the lung bases bilaterally worse on the right. There are small bilateral pleural effusions. There is a left-sided chest tube. There is a small residual left pneumothorax. The thoracic spine, sternum and ribs are intact. There are no fractures or evidence of bony metastatic malignancy. Images of the upper abdomen demonstrate a left hepatic mass measuring 4 centimeters. Metastatic malignancy cannot be excluded. IMPRESSION: Diffuse pulmonary metastases. Bilateral lower lung consolidation and small effusions. There is a left chest tube and a small left pneumothorax. There is a probable metastatic mass in the left lobe of the liver..
[2017-11-12] MEDS: LOVENOX SUB-Q SCH (22:50)
[2017-11-12] MEDS: PERCOCET 5/325 PO PRN (23:35)
--- NOTE | 2017-11-13 08:46 | XRay Report ---
AP CHEST: HISTORY: Pneumothorax, chest tube position The left chest tube is unchanged in position. No pneumothorax is demonstrated on today's exam. Bilateral pulmonary masses and small pleural effusions are stable. Heart size is within normal limits. IMPRESSION: No residual left pneumothorax is identified.
--- NOTE | 2017-11-13 09:00 | Progress Note ---
Assessment and Plan Pneumothorax, left related to lung mets Ovarian Cancer with mets to the Left Lung cancer COPD (chronic obstructive pulmonary disease) T2DM (type 2 diabetes mellitus) Hypertension -Supplemental oxygen to keep O2 sats>90% -Place pleural drain to water seal in the morning and get CXR 2 hours post water seal, shows a small apical PTX -CT chest to evaluate residual pneumothorax -PT/OT to evaluate and treat -Bronchodilators per protocol -VTE prophylaxis -Chest tube care and management -Blood pressure control -Glycemic control Updated family at the bedside. Subjective Date of service: 11/13/17 Principal diagnosis: granulosa cell tumor - ovary with lung mets Interval history: f/up: Hypoxemic respiraotry failure, Left pneumothorax, metastic lung disease, h /o COPD Seen and examined. Vitals, labs, medications, chart and imaging reviewed. Left pleural drain to negative 20cm suction. Tolerating it well. She denies any chest pain, no shortness of breath, no fevers or chills. On supplemental oxygen, 3L [place] Family at the bedside. Objective Vital Signs - 12hr 11/12/17 11/12/17 11/12/17 21:32 22:00 23:09 Temperature Pulse Rate Pulse Rate [ 67 Left] Respiratory 16 Rate Respiratory 18 Rate [Left] Blood Pressure Blood Pressure [Left] O2 Sat by Pulse 97 Oximetry 11/12/17 11/12/17 11/13/17 23:19 23:35 00:44 Temperature 97.8 F Pulse Rate 64 Pulse Rate [ 72 Left] Respiratory 16 17 Rate Respiratory 18 Rate [Left] Blood Pressure Blood Pressure 91/46 [Left] O2 Sat by Pulse 97 Oximetry 11/13/17 11/13/17 11/13/17 04:00 04:45 07:03 Temperature 97.2 F L 97.6 F Pulse Rate 64 64 67 Pulse Rate [ Left] Respiratory 17 18 Rate Respiratory Rate [Left] Blood Pressure 102/56 Blood Pressure 116/64 [Left] O2 Sat by Pulse 97 97 Oximetry Constitutional: no acute distress, alert, other Eyes: non-icteric ENT: oropharynx moist Neck: supple, no JVD Effort: normal, other (Left pleural drain in place, no air leak) Ascultation: Bilateral: rhonchi, other (Bilateral breath sounds heard after chest tube placement.) Cardiovascular: regular rate and rhythm, other (S1,S2, no murmurs, gallops or rubs) Gastrointestinal: normoactive bowel sounds, soft, non-distended, other (No hepatosplenomegaly,) Integumentary: normal Extremities: no cyanosis, no edema, pulses normal Neurologic: normal mental status, non-focal exam, pupils equal and round, CN II- XII normal Psychiatric: mood appropriate, affect normal CBC and BMP: 11/09/17 06:26 11/09/17 06:26 ABG, PT/INR, D-dimer: ABG POC ABG pH 7.465 (7.35-7.45) H 11/10/17 12:16 POC ABG pCO2 34.5 (35-45) L 11/10/17 12:16 POC ABG pO2 60 (80-105) L 11/10/17 12:16 POC ABG HCO3 24.8 11/10/17 12:16 POC ABG Total CO2 26 11/10/17 12:16 POC ABG O2 Sat 92 11/10/17 12:16 PT/INR, D-dimer PT 13.7 Sec. (12.2-14.9) 11/07/17 16:02 INR 1.00 (0.87-1.13) 11/07/17 16:02 Abnormal lab findings: Abnormal Labs 11/07/17 11/07/17 11/07/17 16:02 16:02 23:04 RBC MCV 98 H MCH 34 H MCHC Seg Neutrophils % 73.4 H POC ABG pH POC ABG pCO2 POC ABG pO2 Carbon Dioxide 21 L BUN 22 H Creatinine Glucose 107 H POC Glucose Hemoglobin A1c 6.5 H Total Bilirubin Total Protein Albumin 11/08/17 11/08/17 11/08/17 05:12 05:12 11:15 RBC MCV 98 H MCH 34 H MCHC Seg Neutrophils % POC ABG pH POC ABG pCO2 POC ABG pO2 Carbon Dioxide BUN 20 H Creatinine 0.6 L Glucose POC Glucose 151 H Hemoglobin A1c Total Bilirubin 1.50 H Total Protein 6.1 L Albumin 3.6 L 11/09/17 11/09/17 11/10/17 06:26 06:26 12:16 RBC 3.42 L MCV 98 H MCH 34 H MCHC 35 H Seg Neutrophils % POC ABG pH 7.465 H POC ABG pCO2 34.5 L POC ABG pO2 60 L Carbon Dioxide BUN Creatinine 0.6 L Glucose POC Glucose Hemoglobin A1c Total Bilirubin Total Protein Albumin
[2017-11-13] MEDS: PULMICORT IH SCH ×2 (09:22→21:48)
[2017-11-13] MEDS: BROVANA NEBU IH SCH ×2 (09:22→21:48)
[2017-11-13] MEDS: SODIUM CHLORIDE FLUSH SYRINGE 10 ML IV SCH ×3 (11:00→22:41)
[2017-11-13] MEDS: PROTONIX PO SCH (11:00)
[2017-11-13] MEDS: ZESTRIL PO SCH (11:04)
--- NOTE | 2017-11-13 12:32 | Discharge Summary ---
Providers - Providers Date of Admission: 11/07/17 18:47 Attending physician: OSCAR GARCÍA MD 11/07/17 22:25 Consult to Physician [CONS] Routine Comment: CALLED AT 0931 Consulting Provider: BHUPENDRA WALSH Physician Instructions: Reason For Exam: lung ca /PTX 11/07/17 22:27 Consult to Physician [CONS] Routine Comment: Consulting Provider: OCTAVIO MOTLEY Physician Instructions: Reason For Exam: Lung Ca Primary care physician: JESUS GARCIA Hospitalization Condition: Stable Core Measure Documentation - Palliative Care Palliative Care/ Comfort Measures: Not Applicable Exam - Constitutional Vitals: Temp Pulse Resp BP Pulse Ox 98.0 F 76 20 108/58 97 11/13/17 11:10 11/13/17 11:10 11/13/17 11:10 11/13/17 11:10 11/13/17 11:10 Plan Follow up with: EJSUS GARCIA MD [Primary Care Provider] - 7 Days Prescriptions: ALBUTEROL Inhaler (OR & NICU) [ProAir HFA Inhaler] 2 puff IH QID PRN #1 inhalation PRN Reason: Shortness Of Breath Albuterol Sulfate [Albuterol 0.63% NEBS] 0.63 mg IH TID PRN #120 neb PRN Reason: Wheezing Fluticasone/Salmeterol [Advair 100-50 Diskus] 1 each IH BID #1 blst.w.dev oxyCODONE /ACETAMINOPHEN [Percocet 5/325 mg] 1 tab PO Q6H PRN #30 tablet PRN Reason: Pain, Moderate (4-6) Other Discharge Orders: Nebulizer (Amb) Location: None Selected
[2017-11-13] MEDS: PERCOCET 5/325 PO PRN (16:37)
--- NOTE | 2017-11-13 17:00 | Hem/Onc Progress Note ---
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 The patient on carboplatin and etoposide cycle 3, was started on and terminated on . 2. left Pneumothorax. This may be secondary to the lung lesions. s/p chest tube 3. Hypertension. 4. Port-A-Cath present. I will follow the patient during inpatient stay and then in the clinic setting. still las left chest tube - Patient Problems (1) Granulosa cell tumor Current Visit: Yes Status: Acute Subjective Date of service: 11/13/17 Principal diagnosis: granulosa cell stage IV Interval history: feeling better not SOB still has chest tube Objective - Constitutional Vitals: Last Vital Signs Temp 98.2 F 11/13/17 15:00 Pulse 78 11/13/17 15:00 Resp 18 11/13/17 15:00 BP 100/60 11/13/17 15:00 Pulse Ox 100 11/13/17 15:00 Pain Intensity (0-10): 1/10 (chest tube) General appearance: mild distress Performance status: 2- selfcare, ambulatory - EENT ENT: clear oral mucosa Lymph node exam: negative cervical, negative supraclavicular - Respiratory Respiratory effort: Positive: normal Respiratory: bilateral: CTA, negative: other (chest tube left) - Cardiovascular Heart Sounds: Present: S1 & S2 Extremities: No edema - Gastrointestinal General gastrointestinal: Present: soft Rectal Exam: deferred - Genitourinary Female genitourinary: Present: deferred - Musculoskeletal Musculoskeletal: strength equal bilaterally - Neurologic Neurologic: moves all extremities - Psychiatric Psychiatric: appropriate mood/affect
--- NOTE | 2017-11-13 21:12 | Progress Note ---
Assessment and Plan Assessment and plan: [employer] Greek Language line used with Daughters in law, Alis and Nai at bedside Patient is a 72-year-old Greek speaking woman with a history of ovarian cancer metastatic to lungs sent from outpatient radiology for left-sided pneumothorax. Patient denies shortness of breath and generalized fatigue with exertion for the last 2 days. Also left-sided chest pain which is more with inspiration. Patient received chemotherapy yesterday. She also has a port on the left side. Her lung specialist is Dr. Grant and oncologist is Dr. dawson. Family did not want to tell the patient of the ovarian cancer per Nai. 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 Chanel Pneumothorax, left related to lung mets -Chest tube inserted in the emergency room -chest tube put to water seal, and repeat CXR shows resolved PTX -plan to clamp CT and possible dc tomorrow Ovarian Cancer with mets to the Left Lung cancer PMs group consulted On chemotherapy Not sure whether patient has ovarian cancer No pelvic mass on pelvis u/s COPD (chronic obstructive pulmonary disease) Continue duo nebs T2DM (type 2 diabetes mellitus) Continue coverage and metformin Hypertension Continue antihypertensives especially amlodipine 10 mg once a day DVT prophylaxis Continue Lovenox and GI prophylaxis Disposition: continue inpatient, d/c once PTX resolved and chest tube removed History Interval history: Review of systems Constitutional: No fevers, no malaise, no joint pains CVS: No chest pain, no orthopnea, no dyspnea on exertion, no pedal edema GI: No abdominal pain, no diarrhea, no vomiting, no constipation Respiratory: No shortness of breath, no wheezing, no coughing Hospitalist Physical - Physical exam Narrative exam: General.: Appears well, no distress, nontoxic HEENT: Moist mucous membranes, extraocular muscles intact, no lymphadenopathy Neck: supple Cardiac: S1-S2 heard Lungs: clear to auscultation bilaterally Abdomen: soft , nontender, nondistended, bowel sounds positive Extremities: no edema clubbing or cyanosis Skin: no rash or lesions Neurologic: no gross focal deficits Psych: appropriate behavior, appropriate mood, corporative, judgment intact - Constitutional Vitals: Temp Pulse Resp BP Pulse Ox 97.5 F L 85 18 105/57 91 11/13/17 20:08 11/13/17 20:08 11/13/17 20:08 11/13/17 20:08 11/13/17 20:08 General appearance: Present: well-nourished Results - Labs CBC & Chem 7: 11/09/17 06:26 11/09/17 06:26 Labs: Laboratory Last Values WBC 4.6 K/mm3 (4.5-11.0) 11/09/17 06:26 RBC 3.42 M/mm3 (3.65-5.03) L 11/09/17 06:26 Hgb 11.7 gm/dl (10.1-14.3) 11/09/17 06:26 Hct 33.3 % (30.3-42.9) 11/09/17 06:26 MCV 98 fl (79-97) H 11/09/17 06:26 MCH 34 pg (28-32) H 11/09/17 06:26 MCHC 35 % (30-34) H 11/09/17 06:26 RDW 14.3 % (13.2-15.2) 11/09/17 06:26 Plt Count 161 K/mm3 (140-440) 11/09/17 06:26 Lymph % (Auto) 33.2 % (13.4-35.0) 11/08/17 05:12 [place] % (Auto) 1.1 % (0.0-7.3) 11/08/17 05:12 Eos % (Auto) 0.5 % (0.0-4.3) 11/08/17 05:12 Baso % (Auto) 0.2 % (0.0-1.8) 11/08/17 05:12 Lymph # 2.4 K/mm3 (1.2-5.4) 11/08/17 05:12 [place] # 0.1 K/mm3 (0.0-0.8) 11/08/17 05:12 Eos # 0.0 K/mm3 (0.0-0.4) 11/08/17 05:12 Baso # 0.0 K/mm3 (0.0-0.1) 11/08/17 05:12 Seg Neutrophils % 65.0 % (40.0-70.0) 11/08/17 05:12 Seg Neutrophils # 4.6 K/mm3 (1.8-7.7) 11/08/17 05:12 PT 13.7 Sec. (12.2-14.9) 11/07/17 16:02 INR 1.00 (0.87-1.13) 11/07/17 16:02 APTT 24.4 Sec. (24.2-36.6) 11/07/17 16:02 POC ABG pH 7.465 (7.35-7.45) H 11/10/17 12:16 POC ABG pCO2 34.5 (35-45) L 11/10/17 12:16 POC ABG pO2 60 (80-105) L 11/10/17 12:16 POC ABG HCO3 24.8 11/10/17 12:16 POC ABG Total CO2 26 11/10/17 12:16 POC ABG O2 Sat 92 11/10/17 12:16 POC ABG Base Excess 1 11/10/17 12:16 FiO2 21 % 11/10/17 12:16 Sodium 140 mmol/L (137-145) 11/09/17 06:26 Potassium 4.2 mmol/L (3.6-5.0) 11/09/17 06:26 Chloride 104.9 mmol/L (98-107) 11/09/17 06:26 Carbon Dioxide 24 mmol/L (22-30) 11/09/17 06:26 Anion Gap 15 mmol/L 11/09/17 06:26 BUN 14 mg/dL (7-17) 11/09/17 06:26 Creatinine 0.6 mg/dL (0.7-1.2) L 11/09/17 06:26 Estimated GFR > 60 ml/min 11/09/17 06:26 BUN/Creatinine Ratio 23 % 11/09/17 06:26 Glucose 90 mg/dL (65-100) 11/09/17 06:26 POC Glucose 97 (70-105) 11/08/17 17:09 Hemoglobin A1c 6.5 % (4-6) H 11/07/17 23:04 Calcium 8.7 mg/dL (8.4-10.2) 11/09/17 06:26 Total Bilirubin 1.50 mg/dL (0.1-1.2) H 11/08/17 05:12 AST 22 units/L (5-40) 11/08/17 05:12 ALT 12 units/L (7-56) 11/08/17 05:12 Alkaline Phosphatase 57 units/L (35-129) 11/08/17 05:12 Total Protein 6.1 g/dL (6.3-8.2) L 11/08/17 05:12 Albumin 3.6 g/dL (3.9-5) L 11/08/17 05:12 Albumin/Globulin Ratio 1.4 % 11/08/17 05:12
[2017-11-13] MEDS: LOVENOX SUB-Q SCH (22:41)
--- NOTE | 2017-11-14 08:37 | XRay Report ---
Comparison of the current study with the prior examination of 11/13/17 at 0811 hours shows no appreciable interval change.
--- NOTE | 2017-11-14 08:52 | Progress Note ---
Assessment and Plan Pneumothorax, left related to lung mets Ovarian Cancer with mets to the Left Lung cancer COPD (chronic obstructive pulmonary disease) T2DM (type 2 diabetes mellitus) Hypertension (Prior CT demonstrated small pneumothorax; not obvious on CXR) - clamp chest tube - repeat CXR in 4-6 hours - repeat CT chest in am (if significant increase in PTX may need to consider surgical intervention especially if symptomatic) - if stable or smaller pneumothorax will pull chest tube with outpatient follow- up - continue supplemental oxygen to keep O2 sats>90% - PT/OT to evaluate and treat - continue bronchodilators per protocol - VTE prophylaxis - Chest tube care and management - Blood pressure control - continue Glycemic control with SSI .... re-evaluate in am & prn Updated family at the bedside. Subjective Date of service: 11/14/17 Principal diagnosis: (L) Pneumothorax; Ovarian Cancer (Stage IV); COPD; Diabetes type II; HTN Interval history: Patient is seen today for: Left Pneumothorax; Ovarian Cancer; COPD; type 2 diabetes mellitus; Hypertension Seen and examined at bedside; 24hour events reviewed; nursing and respiratory care staff consulted; no adverse overnight events reported to me; resting peacefully in bed; states that chest pain is better but persistent; No N/V/F/C Objective Vital Signs - 12hr 11/13/17 11/13/17 11/13/17 21:50 21:51 22:03 Temperature Pulse Rate Pulse Rate [ 84 81 Left] Respiratory Rate Respiratory 14 14 Rate [Left] Blood Pressure O2 Sat by Pulse 94 Oximetry 11/13/17 11/14/17 11/14/17 23:00 02:15 04:00 Temperature 98.5 F Pulse Rate 82 82 Pulse Rate [ Left] Respiratory 18 20 Rate Respiratory Rate [Left] Blood Pressure 113/71 O2 Sat by Pulse 96 94 Oximetry 11/14/17 07:36 Temperature 98.8 F Pulse Rate 80 Pulse Rate [ Left] Respiratory 18 Rate Respiratory Rate [Left] Blood Pressure 115/60 O2 Sat by Pulse 94 Oximetry Constitutional: no acute distress, alert, other Eyes: non-icteric ENT: oropharynx moist, other (Mallampati 3) Neck: supple, no JVD, other (no thyromegaly) Effort: mildly labored, other (Left pleural drain in place, no air leak) Ascultation: Bilateral: diminished breath sounds, rhonchi, other (Bilateral breath sounds heard after chest tube placement.) Percussion: Bilateral: not dull Cardiovascular: regular rate and rhythm, other (S1,S2, no murmurs, gallops or rubs) Gastrointestinal: normoactive bowel sounds, soft, non-tender, non-distended, other (No hepatosplenomegaly,) Integumentary: normal Extremities: no cyanosis, no edema, pulses normal, no ischemia or petechiae Neurologic: normal mental status, non-focal exam, pupils equal and round, CN II- XII normal Psychiatric: mood appropriate, affect normal CBC and BMP: 11/09/17 06:26 11/09/17 06:26 ABG, PT/INR, D-dimer: ABG POC ABG pH 7.465 (7.35-7.45) H 11/10/17 12:16 POC ABG pCO2 34.5 (35-45) L 11/10/17 12:16 POC ABG pO2 60 (80-105) L 11/10/17 12:16 POC ABG HCO3 24.8 11/10/17 12:16 POC ABG Total CO2 26 11/10/17 12:16 POC ABG O2 Sat 92 11/10/17 12:16 PT/INR, D-dimer PT 13.7 Sec. (12.2-14.9) 11/07/17 16:02 INR 1.00 (0.87-1.13) 11/07/17 16:02 Abnormal lab findings: Abnormal Labs 11/07/17 11/07/17 11/07/17 16:02 16:02 23:04 RBC MCV 98 H MCH 34 H MCHC Seg Neutrophils % 73.4 H POC ABG pH POC ABG pCO2 POC ABG pO2 Carbon Dioxide 21 L BUN 22 H Creatinine Glucose 107 H POC Glucose Hemoglobin A1c 6.5 H Total Bilirubin Total Protein Albumin 11/08/17 11/08/17 11/08/17 05:12 05:12 11:15 RBC MCV 98 H MCH 34 H MCHC Seg Neutrophils % POC ABG pH POC ABG pCO2 POC ABG pO2 Carbon Dioxide BUN 20 H Creatinine 0.6 L Glucose POC Glucose 151 H Hemoglobin A1c Total Bilirubin 1.50 H Total Protein 6.1 L Albumin 3.6 L 11/09/17 11/09/17 11/10/17 06:26 06:26 12:16 RBC 3.42 L MCV 98 H MCH 34 H MCHC 35 H Seg Neutrophils % POC ABG pH 7.465 H POC ABG pCO2 34.5 L POC ABG pO2 60 L Carbon Dioxide BUN Creatinine 0.6 L Glucose POC Glucose Hemoglobin A1c Total Bilirubin Total Protein Albumin Chest x-ray: image reviewed (bilateral mets; left pig tail chest tube; port-a- cath through subclavian no obvious PTX)
[2017-11-14] MEDS: PULMICORT IH SCH ×2 (10:13→19:53)
[2017-11-14] MEDS: BROVANA NEBU IH SCH ×2 (10:13→19:53)
[2017-11-14] MEDS: ZESTRIL PO SCH (10:45)
[2017-11-14] MEDS: PROTONIX PO SCH (10:50)
[2017-11-14] MEDS: SODIUM CHLORIDE FLUSH SYRINGE 10 ML IV SCH ×2 (10:50→21:38)
--- NOTE | 2017-11-14 12:22 | Hem/Onc Progress Note ---
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 The patient on carboplatin and etoposide cycle 3, was started on and terminated on . 2. left Pneumothorax. This may be secondary to the lung lesions. s/p chest tube 3. Hypertension. 4. Port-A-Cath present. I will follow the patient during inpatient stay and then in the clinic setting. still has left chest tube - pt says plan to remove the tube today. - reviewed CXR - Patient Problems (1) Granulosa cell tumor Current Visit: Yes Status: Acute Subjective Date of service: 11/14/17 Principal diagnosis: stage 4 granulosa cell tumor of ovary Interval history: feeling better not SOB still has chest tube Objective - Constitutional Vitals: Last Vital Signs Temp 98.8 F 11/14/17 07:36 Pulse 78 11/14/17 10:21 Resp 18 11/14/17 10:21 BP 115/60 11/14/17 07:36 Pulse Ox 96 11/14/17 10:14 Pain Intensity (0-10): 1/10 (left chest) General appearance: mild distress Performance status: 2- selfcare, ambulatory - EENT Eyes: PERRL ENT: clear oral mucosa Lymph node exam: negative cervical, negative supraclavicular - Respiratory Respiratory effort: Positive: normal Respiratory: bilateral: CTA (anteriorly), negative: other (left chest tube) - Cardiovascular Heart Sounds: Present: S1 & S2 Extremities: No edema - Gastrointestinal General gastrointestinal: Present: soft, non-tender Rectal Exam: deferred - Genitourinary Female genitourinary: Present: deferred - Integumentary Integumentary: warm - Musculoskeletal Musculoskeletal: strength equal bilaterally - Neurologic Neurologic: moves all extremities - Psychiatric Psychiatric: appropriate mood/affect
--- NOTE | 2017-11-14 15:52 | Progress Note ---
Assessment and Plan Assessment and plan: [employer] [place] Language line used with Daughters in law, Alis and Nai at bedside Patient is a 72-year-old [place] speaking woman with a history of ovarian cancer metastatic to lungs sent from outpatient radiology for left-sided pneumothorax. Patient denies shortness of breath and generalized fatigue with exertion for the last 2 days. Also left-sided chest pain which is more with inspiration. Patient received chemotherapy yesterday. She also has a port on the left side. Her lung specialist is Dr. Grant and oncologist is Dr. dawson. Family did not want to tell the patient of the ovarian cancer per Nai. 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 Chanel Pneumothorax, left related to lung mets -Chest tube inserted in the emergency room -chest tube put to water seal, and repeat CXR shows resolved PTX -plan to clamp CT and possible dc tomorrow Ovarian Cancer with mets to the Left Lung cancer oncology consulted On chemotherapy COPD (chronic obstructive pulmonary disease) Continue duo nebs T2DM (type 2 diabetes mellitus) Continue coverage and metformin Hypertension Continue antihypertensives especially amlodipine 10 mg once a day DVT prophylaxis Continue Lovenox and GI prophylaxis Disposition: continue inpatient, d/c once PTX resolved and chest tube removed History Interval history: Review of systems Constitutional: No fevers, no malaise, no joint pains CVS: No chest pain, no orthopnea, no dyspnea on exertion, no pedal edema GI: No abdominal pain, no diarrhea, no vomiting, no constipation Respiratory: No shortness of breath, no wheezing, no coughing Hospitalist Physical - Physical exam Narrative exam: General.: Appears well, no distress, nontoxic HEENT: Moist mucous membranes, extraocular muscles intact, no lymphadenopathy Neck: supple Cardiac: S1-S2 heard Lungs: decreased air entry in bases Abdomen: soft , nontender, nondistended, bowel sounds positive Extremities: no edema clubbing or cyanosis Skin: no rash or lesions Neurologic: no gross focal deficits Psych: appropriate behavior, appropriate mood, corporative, judgment intact - Constitutional Vitals: Temp Pulse Resp BP Pulse Ox 98.0 F 72 18 103/55 93 11/14/17 13:45 11/14/17 13:45 11/14/17 13:45 11/14/17 13:45 11/14/17 13:45 General appearance: Present: well-nourished Results - Labs CBC & Chem 7: 11/09/17 06:26 11/09/17 06:26 Labs: Laboratory Last Values WBC 4.6 K/mm3 (4.5-11.0) 11/09/17 06:26 RBC 3.42 M/mm3 (3.65-5.03) L 11/09/17 06:26 Hgb 11.7 gm/dl (10.1-14.3) 11/09/17 06:26 Hct 33.3 % (30.3-42.9) 11/09/17 06:26 MCV 98 fl (79-97) H 11/09/17 06:26 MCH 34 pg (28-32) H 11/09/17 06:26 MCHC 35 % (30-34) H 11/09/17 06:26 RDW 14.3 % (13.2-15.2) 11/09/17 06:26 Plt Count 161 K/mm3 (140-440) 11/09/17 06:26 Lymph % (Auto) 33.2 % (13.4-35.0) 11/08/17 05:12 Hall % (Auto) 1.1 % (0.0-7.3) 11/08/17 05:12 Eos % (Auto) 0.5 % (0.0-4.3) 11/08/17 05:12 Baso % (Auto) 0.2 % (0.0-1.8) 11/08/17 05:12 Lymph # 2.4 K/mm3 (1.2-5.4) 11/08/17 05:12 Hall # 0.1 K/mm3 (0.0-0.8) 11/08/17 05:12 Eos # 0.0 K/mm3 (0.0-0.4) 11/08/17 05:12 Baso # 0.0 K/mm3 (0.0-0.1) 11/08/17 05:12 Seg Neutrophils % 65.0 % (40.0-70.0) 11/08/17 05:12 Seg Neutrophils # 4.6 K/mm3 (1.8-7.7) 11/08/17 05:12 PT 13.7 Sec. (12.2-14.9) 11/07/17 16:02 INR 1.00 (0.87-1.13) 11/07/17 16:02 APTT 24.4 Sec. (24.2-36.6) 11/07/17 16:02 POC ABG pH 7.465 (7.35-7.45) H 11/10/17 12:16 POC ABG pCO2 34.5 (35-45) L 11/10/17 12:16 POC ABG pO2 60 (80-105) L 11/10/17 12:16 POC ABG HCO3 24.8 11/10/17 12:16 POC ABG Total CO2 26 11/10/17 12:16 POC ABG O2 Sat 92 11/10/17 12:16 POC ABG Base Excess 1 11/10/17 12:16 FiO2 21 % 11/10/17 12:16 Sodium 140 mmol/L (137-145) 11/09/17 06:26 Potassium 4.2 mmol/L (3.6-5.0) 11/09/17 06:26 Chloride 104.9 mmol/L (98-107) 11/09/17 06:26 Carbon Dioxide 24 mmol/L (22-30) 11/09/17 06:26 Anion Gap 15 mmol/L 11/09/17 06:26 BUN 14 mg/dL (7-17) 11/09/17 06:26 Creatinine 0.6 mg/dL (0.7-1.2) L 11/09/17 06:26 Estimated GFR > 60 ml/min 11/09/17 06:26 BUN/Creatinine Ratio 23 % 11/09/17 06:26 Glucose 90 mg/dL (65-100) 11/09/17 06:26 POC Glucose 97 (70-105) 11/08/17 17:09 Hemoglobin A1c 6.5 % (4-6) H 11/07/17 23:04 Calcium 8.7 mg/dL (8.4-10.2) 11/09/17 06:26 Total Bilirubin 1.50 mg/dL (0.1-1.2) H 11/08/17 05:12 AST 22 units/L (5-40) 11/08/17 05:12 ALT 12 units/L (7-56) 11/08/17 05:12 Alkaline Phosphatase 57 units/L (35-129) 11/08/17 05:12 Total Protein 6.1 g/dL (6.3-8.2) L 11/08/17 05:12 Albumin 3.6 g/dL (3.9-5) L 11/08/17 05:12 Albumin/Globulin Ratio 1.4 % 11/08/17 05:12
[2017-11-14] MEDS: LOVENOX SUB-Q SCH (21:31)
--- NOTE | 2017-11-14 23:19 | XRay Report ---
FINAL REPORT EXAM: XR CHEST 1V AP HISTORY: pneumothorax (S/P clamping chest tube) TECHNIQUE: upright single view chest PRIORS: Comparison is November 10, 2017 FINDINGS: Numerous pulmonary nodules of varying sizes are again noted consistent with metastatic disease. Left chest port again noted unchanged Left-sided pigtail chest tube is again identified. No visible pneumothorax. There is mild blunting of the left costophrenic angle could reflect small effusion IMPRESSION: Chest tube. No evidence for pneumothorax Probable small left effusion Numerous pulmonary nodules consistent with metastatic disease
--- NOTE | 2017-11-15 08:07 | Hem/Onc Progress Note ---
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 The patient on carboplatin and etoposide cycle 3, was started on and terminated on . 2. left Pneumothorax. This may be secondary to the lung lesions. s/p chest tube 3. Hypertension. 4. Port-A-Cath present. I will follow the patient during inpatient stay and then in the clinic setting. still has left chest tube - pt says plan to remove the tube today. - reviewed CXR from 11/14 Ct chest 11/15 - Patient Problems (1) Granulosa cell tumor Current Visit: Yes Status: Acute Subjective Date of service: 11/15/17 Principal diagnosis: granulosa cell ovarian ca with lung mets Interval history: feeling better not SOB still has chest tube - plan for CT chest today 11/15 Objective - Constitutional Vitals: Last Vital Signs Temp 98.3 F 11/15/17 02:04 Pulse 81 11/15/17 02:04 Resp 18 11/15/17 02:04 BP 88/53 11/15/17 02:04 Pulse Ox 94 11/15/17 02:04 Pain Intensity (0-10): denies any pain General appearance: no acute distress Performance status: 2- selfcare, ambulatory - EENT ENT: clear oral mucosa Lymph node exam: negative cervical, negative supraclavicular - Respiratory Respiratory: bilateral: CTA (anteriorly) - Cardiovascular Heart Sounds: Present: S1 & S2 Extremities: No edema - Gastrointestinal General gastrointestinal: Present: soft, non-tender Rectal Exam: deferred - Genitourinary Female genitourinary: Present: deferred - Integumentary Integumentary: warm - Musculoskeletal Musculoskeletal: strength equal bilaterally - Neurologic Neurologic: moves all extremities - Psychiatric Psychiatric: appropriate mood/affect
--- NOTE | 2017-11-15 08:14 | Event Note ---
Date: 11/15/[address] chest No residual pneumothorax bilateral moderate pleural effusion - pulled 400 mls of blood tinged fluids and chest tube pulled - repeat CXR in am
--- NOTE | 2017-11-15 08:23 | Cat Scan Report ---
CT chest without contrast: Evaluate for pneumothorax/pleural effusions. Known metastatic pulmonary nodules. Transverse images were obtained through the chest with coronal and sagittal 2-D reformatted images. There is a left jugular central venous catheter with tip in IVC. A left chest tube is present oriented into the posterior upper chest cavity. No residual pneumothorax identified. Numerous pulmonary masses are present bilaterally. There are bilateral pleural effusions greater on left and right with significant worsening on the left compared to prior exam of November 12. Bibasilar atelectasis is also present which is probably unchanged. Impression: 1. No residual pneumothorax with left chest tube present. 2. Worsening left pleural effusion and persistent right pleural effusion.
[2017-11-15] MEDS: PULMICORT IH SCH ×2 (08:41→20:00)
[2017-11-15] MEDS: BROVANA NEBU IH SCH ×2 (08:42→20:00)
--- NOTE | 2017-11-15 08:55 | Progress Note ---
Assessment and Plan Patient alert, awake. Patient is 4 litres O2 via nasal canula. O2 saturation 95% .No acute respiratory distress.Patients Catscan of chest today reported no residual pneumothorax.Bilateral pleural effusion.Left increasing. - Patient Problems (1) Pneumothorax, left Current Visit: Yes Status: Acute Plan to address problem: No acute respiratory distress.Patients todays chest xray reported small left apical pneumothorax better than yesterday . (2) Granulosa cell tumor Current Visit: Yes Status: Acute Plan to address problem: Percutaneous needle Biopsy of chest lesion reported Granulosa cell tumor of Ovarian Origin. (3) Hypertension Current Visit: Yes Status: Chronic Qualifiers: Hypertension type: essential hypertension Qualified Code(s): I10 - Essential (primary) hypertension Plan to address problem: Management as per primary care. Subjective Date of service: 11/15/17 Principal diagnosis: granulosa cell ovarian ca with lung mets Interval history: Patient alert, awake. Patient is 4 litres O2 via nasal canula. O2 saturation 95% .No acute respiratory distress.Patients Cat scan of chest today reported no residual pneumothorax.Bilateral pleural effusion.Left pleural effusion increasing.Attached chest tube to suctioning. Sending the pleural fluid for cytology,cell count, cultures, LDH,Protein, Glucose, Cultures, AFB and fungus. Objective Vital Signs - 12hr 11/14/17 11/15/17 11/15/17 22:00 00:00 02:04 Temperature 98.3 F Pulse Rate 83 81 Respiratory 18 18 Rate Blood Pressure 88/53 O2 Sat by Pulse 96 94 Oximetry 11/15/17 08:10 Temperature 99.4 F Pulse Rate 82 Respiratory 20 Rate Blood Pressure 103/60 O2 Sat by Pulse 95 Oximetry Constitutional: no acute distress, alert, other Eyes: non-icteric ENT: oropharynx moist, other (Mallampati 3) Neck: supple, no JVD, other (no thyromegaly) Effort: mildly labored, other (Left pleural drain in place, no air leak) Ascultation: Bilateral: diminished breath sounds, rhonchi, other (Bilateral breath sounds heard after chest tube placement.) Percussion: Bilateral: dull (at the bases.) Cardiovascular: regular rate and rhythm, other (S1,S2, no murmurs, gallops or rubs) Gastrointestinal: normoactive bowel sounds, soft, non-tender, non-distended, other (No hepatosplenomegaly,) Integumentary: normal Extremities: no cyanosis, no edema, pulses normal, no ischemia or petechiae Neurologic: normal mental status, non-focal exam, pupils equal and round, CN II- XII normal Psychiatric: mood appropriate, affect normal CBC and BMP: 11/09/17 06:26 11/09/17 06:26 ABG, PT/INR, D-dimer: ABG POC ABG pH 7.465 (7.35-7.45) H 11/10/17 12:16 POC ABG pCO2 34.5 (35-45) L 11/10/17 12:16 POC ABG pO2 60 (80-105) L 11/10/17 12:16 POC ABG HCO3 24.8 11/10/17 12:16 POC ABG Total CO2 26 11/10/17 12:16 POC ABG O2 Sat 92 11/10/17 12:16 PT/INR, D-dimer PT 13.7 Sec. (12.2-14.9) 11/07/17 16:02 INR 1.00 (0.87-1.13) 11/07/17 16:02 Abnormal lab findings: Abnormal Labs 11/07/17 11/07/17 11/07/17 16:02 16:02 23:04 RBC MCV 98 H MCH 34 H MCHC Seg Neutrophils % 73.4 H POC ABG pH POC ABG pCO2 POC ABG pO2 Carbon Dioxide 21 L BUN 22 H Creatinine Glucose 107 H POC Glucose Hemoglobin A1c 6.5 H Total Bilirubin Total Protein Albumin 11/08/17 11/08/17 11/08/17 05:12 05:12 11:15 RBC MCV 98 H MCH 34 H MCHC Seg Neutrophils % POC ABG pH POC ABG pCO2 POC ABG pO2 Carbon Dioxide BUN 20 H Creatinine 0.6 L Glucose POC Glucose 151 H Hemoglobin A1c Total Bilirubin 1.50 H Total Protein 6.1 L Albumin 3.6 L 11/09/17 11/09/17 11/10/17 06:26 06:26 12:16 RBC 3.42 L MCV 98 H MCH 34 H MCHC 35 H Seg Neutrophils % POC ABG pH 7.465 H POC ABG pCO2 34.5 L POC ABG pO2 60 L Carbon Dioxide BUN Creatinine 0.6 L Glucose POC Glucose Hemoglobin A1c Total Bilirubin Total Protein Albumin CT scan - chest: report reviewed, image reviewed (No residual pneumothorax, bilateral pleural effusions. Pleural effusion increasing on left side.)
--- NOTE | 2017-11-15 09:19 | Discharge Summary ---
Providers - Providers Date of Admission: 11/07/17 18:47 Attending physician: OSCAR GARCÍA MD 11/07/17 22:25 Consult to Physician [CONS] Routine Comment: CALLED AT 0931 Consulting Provider: BHUPENDRA WALSH Physician Instructions: Reason For Exam: lung ca /PTX 11/07/17 22:27 Consult to Physician [CONS] Routine Comment: Consulting Provider: OCTAVIO MOTLEY Physician Instructions: Reason For Exam: Lung Ca Primary care physician: JESUS GARCIA Hospitalization Condition: Stable Disposition: DC-01 TO HOME OR SELFCARE Time spent for discharge: 33 minutes Core Measure Documentation - Palliative Care Palliative Care/ Comfort Measures: Not Applicable - Core Measures Any of the following diagnoses?: none Exam - Physical Exam Narrative exam: General.: Appears well, no distress, nontoxic HEENT: Moist mucous membranes, extraocular muscles intact, no lymphadenopathy Neck: supple Cardiac: S1-S2 heard Lungs: decreased air entry in bases Abdomen: soft , nontender, nondistended, bowel sounds positive Extremities: no edema clubbing or cyanosis Skin: no rash or lesions Neurologic: no gross focal deficits Psych: appropriate behavior, appropriate mood, corporative, judgment intact - Constitutional Vitals: Temp Pulse Resp BP Pulse Ox 99.4 F 82 20 103/60 95 11/15/17 08:10 11/15/17 08:10 11/15/17 08:10 11/15/17 08:10 11/15/17 08:10 Plan Follow up with: JESUS GARCIA MD [Primary Care Provider] - 7 Days Prescriptions: ALBUTEROL Inhaler (OR & NICU) [ProAir HFA Inhaler] 2 puff IH QID PRN #1 inhalation PRN Reason: Shortness Of Breath Albuterol Sulfate [Albuterol 0.63% NEBS] 0.63 mg IH TID PRN #120 neb PRN Reason: Wheezing Fluticasone/Salmeterol [Advair 100-50 Diskus] 1 each IH BID #1 blst.w.dev levoFLOXacin [Levaquin] 750 mg PO QDAY #7 tablet oxyCODONE /ACETAMINOPHEN [Percocet 5/325 mg] 1 tab PO Q6H PRN #30 tablet PRN Reason: Pain, Moderate (4-6) Sulfamethoxazole/Trimethoprim [Bactrim DS TAB] 1 each PO BID #14 tablet Other Discharge Orders: Nebulizer (Amb) Location: None Selected
[2017-11-15] MEDS: PROTONIX PO SCH (10:12)
[2017-11-15] MEDS: SODIUM CHLORIDE FLUSH SYRINGE 10 ML IV SCH (10:13)
[2017-11-15] MEDS: ZESTRIL PO SCH (10:14)
[2017-11-15 13:16] LABS: Total Cells Counted 100 /mm3
[2017-11-15] MEDS: PERCOCET 5/325 PO PRN (14:05)
--- NOTE | 2017-11-15 20:55 | Progress Note ---
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 Patient denies shortness of breath and generalized fatigue with exertion for the last 2 days. Also left-sided chest pain which is more with inspiration. Patient received chemotherapy yesterday. She also has a port on the left side. Her lung specialist is Dr. Grant and oncologist is Dr. dawson. Family did not want to tell the patient of the ovarian cancer per Nai. 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 Chanel Pneumothorax, left related to lung mets -Chest tube inserted in the emergency room -chest tube put to water seal, and repeat CXR shows resolved PTX -CT being managed by pulmonology Ovarian Cancer with mets to the Left Lung cancer oncology consulted On chemotherapy Pleural effusions bilat add lasix IV COPD (chronic obstructive pulmonary disease) Continue duo nebs T2DM (type 2 diabetes mellitus) Continue coverage and metformin Hypertension Continue antihypertensives especially amlodipine 10 mg once a day DVT prophylaxis Continue Lovenox and GI prophylaxis Disposition: continue inpatient, d/c once PTX resolved and chest tube removed History Interval history: Review of systems Constitutional: No fevers, no malaise, no joint pains CVS: No chest pain, no orthopnea, no dyspnea on exertion, no pedal edema GI: No abdominal pain, no diarrhea, no vomiting, no constipation Respiratory: No shortness of breath, no wheezing, no coughing Hospitalist Physical - Physical exam Narrative exam: General.: Appears well, no distress, nontoxic HEENT: Moist mucous membranes, extraocular muscles intact, no lymphadenopathy Neck: supple Cardiac: S1-S2 heard Lungs: decreased air entry in bases Abdomen: soft , nontender, nondistended, bowel sounds positive Extremities: no edema clubbing or cyanosis Skin: no rash or lesions Neurologic: no gross focal deficits Psych: appropriate behavior, appropriate mood, corporative, judgment intact - Constitutional Vitals: Temp Pulse Resp BP Pulse Ox 98.7 F 88 20 103/63 97 11/15/17 13:41 11/15/17 16:00 11/15/17 20:09 11/15/17 13:41 11/15/17 13:41 General appearance: Present: well-nourished Results - Labs CBC & Chem 7: 11/09/17 06:26 11/09/17 06:26 Labs: Laboratory Last Values WBC 4.6 K/mm3 (4.5-11.0) 11/09/17 06:26 RBC 3.42 M/mm3 (3.65-5.03) L 11/09/17 06:26 Hgb 11.7 gm/dl (10.1-14.3) 11/09/17 06:26 Hct 33.3 % (30.3-42.9) 11/09/17 06:26 MCV 98 fl (79-97) H 11/09/17 06:26 MCH 34 pg (28-32) H 11/09/17 06:26 MCHC 35 % (30-34) H 11/09/17 06:26 RDW 14.3 % (13.2-15.2) 11/09/17 06:26 Plt Count 161 K/mm3 (140-440) 11/09/17 06:26 Lymph % (Auto) 33.2 % (13.4-35.0) 11/08/17 05:12 [place] % (Auto) 1.1 % (0.0-7.3) 11/08/17 05:12 Eos % (Auto) 0.5 % (0.0-4.3) 11/08/17 05:12 Baso % (Auto) 0.2 % (0.0-1.8) 11/08/17 05:12 Lymph # 2.4 K/mm3 (1.2-5.4) 11/08/17 05:12 [place] # 0.1 K/mm3 (0.0-0.8) 11/08/17 05:12 Eos # 0.0 K/mm3 (0.0-0.4) 11/08/17 05:12 Baso # 0.0 K/mm3 (0.0-0.1) 11/08/17 05:12 Seg Neutrophils % 65.0 % (40.0-70.0) 11/08/17 05:12 Seg Neutrophils # 4.6 K/mm3 (1.8-7.7) 11/08/17 05:12 PT 13.7 Sec. (12.2-14.9) 11/07/17 16:02 INR 1.00 (0.87-1.13) 11/07/17 16:02 APTT 24.4 Sec. (24.2-36.6) 11/07/17 16:02 POC ABG pH 7.465 (7.35-7.45) H 11/10/17 12:16 POC ABG pCO2 34.5 (35-45) L 11/10/17 12:16 POC ABG pO2 60 (80-105) L 11/10/17 12:16 POC ABG HCO3 24.8 11/10/17 12:16 POC ABG Total CO2 26 11/10/17 12:16 POC ABG O2 Sat 92 11/10/17 12:16 POC ABG Base Excess 1 11/10/17 12:16 FiO2 21 % 11/10/17 12:16 Sodium 140 mmol/L (137-145) 11/09/17 06:26 Potassium 4.2 mmol/L (3.6-5.0) 11/09/17 06:26 Chloride 104.9 mmol/L (98-107) 11/09/17 06:26 Carbon Dioxide 24 mmol/L (22-30) 11/09/17 06:26 Anion Gap 15 mmol/L 11/09/17 06:26 BUN 14 mg/dL (7-17) 11/09/17 06:26 Creatinine 0.6 mg/dL (0.7-1.2) L 11/09/17 06:26 Estimated GFR > 60 ml/min 11/09/17 06:26 BUN/Creatinine Ratio 23 % 11/09/17 06:26 Glucose 90 mg/dL (65-100) 11/09/17 06:26 POC Glucose 97 (70-105) 11/08/17 17:09 Hemoglobin A1c 6.5 % (4-6) H 11/07/17 23:04 Calcium 8.7 mg/dL (8.4-10.2) 11/09/17 06:26 Total Bilirubin 1.50 mg/dL (0.1-1.2) H 11/08/17 05:12 AST 22 units/L (5-40) 11/08/17 05:12 ALT 12 units/L (7-56) 11/08/17 05:12 Alkaline Phosphatase 57 units/L (35-129) 11/08/17 05:12 Total Protein 6.1 g/dL (6.3-8.2) L 11/08/17 05:12 Albumin 3.6 g/dL (3.9-5) L 11/08/17 05:12 Albumin/Globulin Ratio 1.4 % 11/08/17 05:12 Fluid Type Pleural 11/15/17 11:20 Fluid Color Red 11/15/17 11:20 Fluid Appearance Bloody 11/15/17 11:20 Fluid WBC 519 /mm3 11/15/17 11:20 Fluid RBC 53411 /mm3 11/15/17 11:20 Fluid Seg Neutrophils 70.0 % 11/15/17 11:20 Fluid Lymphocytes 19.0 % 11/15/17 11:20 Fluid Monocytes 9.0 % 11/15/17 11:20 Fluid Eosinophils 2.0 % 11/15/17 11:20
[2017-11-15] MEDS: LOVENOX SUB-Q SCH (22:31)
[2017-11-15] MEDS: LASIX IV SCH (23:52)
[2017-11-16] MEDS: BROVANA NEBU IH SCH ×2 (07:32→20:06)
[2017-11-16] MEDS: PULMICORT IH SCH ×2 (07:32→20:05)
[2017-11-16] MEDS: PROTONIX PO SCH (10:51)
[2017-11-16] MEDS: SODIUM CHLORIDE FLUSH SYRINGE 10 ML IV SCH ×2 (11:02→22:30)
[2017-11-16] MEDS: LASIX IV SCH (11:06)
[2017-11-16] MEDS: ZESTRIL PO SCH (11:06)
--- NOTE | 2017-11-16 14:18 | Progress Note ---
Assessment and Plan Pneumothorax, left related to lung mets Bilateral pleural effusions Ovarian Cancer with mets to the Left Lung cancer COPD (chronic obstructive pulmonary disease) T2DM (type 2 diabetes mellitus) Hypertension (Prior CT demonstrated small pneumothorax; not obvious on CXR) - chest tube pulled - continue supplemental oxygen to keep O2 sats>90% - home oxygen evaluation - continue bronchodilators per protocol - VTE prophylaxis - Blood pressure control - continue Glycemic control with SSI - OK to discharge today respiratory-g[place]ett with one week f/up with Dr. Velez in the office Subjective Date of service: 11/16/17 Principal diagnosis: Left Pneumothorax; Ovarian Cancer; COPD; type 2 diabetes mellitus; Hyperten Interval history: Patient is seen today for: Left Pneumothorax; Ovarian Cancer; COPD; type 2 diabetes mellitus; Hypertension Seen and examined at bedside; 24hour events reviewed; nursing and respiratory care staff consulted; no adverse overnight events reported to me; doing better; still with pleuritic pain with deep breathing but no more SOB than before chest tube pulled Objective Vital Signs - 12hr 11/16/17 11/16/17 11/16/17 07:20 07:34 07:43 Temperature 99.2 F Pulse Rate 118 H Pulse Rate [ 94 H 95 H Anterior Bilateral Throughout] Respiratory 20 Rate Respiratory 18 18 Rate [Anterior Bilateral Throughout] Blood Pressure 112/67 Blood Pressure [Left] O2 Sat by Pulse 96 94 Oximetry 11/16/17 11/16/17 11/16/17 10:56 11:01 11:06 Temperature Pulse Rate 94 H 94 H 94 H Pulse Rate [ Anterior Bilateral Throughout] Respiratory Rate Respiratory Rate [Anterior Bilateral Throughout] Blood Pressure 88/55 97/63 Blood Pressure 97/63 [Left] O2 Sat by Pulse 93 Oximetry Constitutional: no acute distress, alert, other Eyes: non-icteric ENT: oropharynx moist, other (Mallampati 3) Neck: supple, no JVD, other (no thyromegaly) Effort: mildly labored, other (Left pleural drain in place, no air leak) Ascultation: Bilateral: clear, diminished breath sounds (bases) Percussion: Bilateral: dull (at the bases.) Cardiovascular: regular rate and rhythm, other (S1,S2, no murmurs, gallops or rubs) Gastrointestinal: normoactive bowel sounds, soft, non-tender, non-distended, other (No hepatosplenomegaly,) Integumentary: normal Extremities: no cyanosis, no edema, pulses normal, no ischemia or petechiae Neurologic: normal mental status, non-focal exam, pupils equal and round, CN II- XII normal Psychiatric: mood appropriate, affect normal CBC and BMP: 11/09/17 06:26 11/09/17 06:26 ABG, PT/INR, D-dimer: ABG POC ABG pH 7.465 (7.35-7.45) H 11/10/17 12:16 POC ABG pCO2 34.5 (35-45) L 11/10/17 12:16 POC ABG pO2 60 (80-105) L 11/10/17 12:16 POC ABG HCO3 24.8 11/10/17 12:16 POC ABG Total CO2 26 11/10/17 12:16 POC ABG O2 Sat 92 11/10/17 12:16 PT/INR, D-dimer PT 13.7 Sec. (12.2-14.9) 11/07/17 16:02 INR 1.00 (0.87-1.13) 11/07/17 16:02 Abnormal lab findings: Abnormal Labs 11/07/17 11/07/17 11/07/17 16:02 16:02 23:04 RBC MCV 98 H MCH 34 H MCHC Seg Neutrophils % 73.4 H POC ABG pH POC ABG pCO2 POC ABG pO2 Carbon Dioxide 21 L BUN 22 H Creatinine Glucose 107 H POC Glucose Hemoglobin A1c 6.5 H Total Bilirubin Total Protein Albumin 11/08/17 11/08/17 11/08/17 05:12 05:12 11:15 RBC MCV 98 H MCH 34 H MCHC Seg Neutrophils % POC ABG pH POC ABG pCO2 POC ABG pO2 Carbon Dioxide BUN 20 H Creatinine 0.6 L Glucose POC Glucose 151 H Hemoglobin A1c Total Bilirubin 1.50 H Total Protein 6.1 L Albumin 3.6 L 11/09/17 11/09/17 11/10/17 06:26 06:26 12:16 RBC 3.42 L MCV 98 H MCH 34 H MCHC 35 H Seg Neutrophils % POC ABG pH 7.465 H POC ABG pCO2 34.5 L POC ABG pO2 60 L Carbon Dioxide BUN Creatinine 0.6 L Glucose POC Glucose Hemoglobin A1c Total Bilirubin Total Protein Albumin Chest x-ray: image reviewed (no recurrent pneumothorax obvious) Allied health notes reviewed: nursing
--- NOTE | 2017-11-16 16:12 | XRay Report ---
FINAL REPORT EXAM: XR CHEST 1V AP HISTORY: effusion; pneumothorax TECHNIQUE: Frontal chest x-ray. PRIORS: Chest x-ray November 14, 2017. FINDINGS: Mild cardiomegaly is stable. Aortic calcifications. Metastatic pulmonary nodules are unchanged. Small bilateral pleural effusions with adjacent focal subsegmental atelectasis appears to be present. No pneumothorax. There are no suspicious osseous lesions. Left port catheter tip is present within the SVC. IMPRESSION: Suspect small bilateral pleural effusions with adjacent areas of focal subsegmental atelectasis. Similar to prior. Metastatic pulmonary nodules.
--- NOTE | 2017-11-16 18:47 | Event Note ---
Date: 11/16/17 Patient desaturated to 86% on Room Air at rest A&P: - discharge Home with Home oxygen
[2017-11-16] MEDS: LOVENOX SUB-Q SCH (22:29)
[2017-11-17] MEDS: BROVANA NEBU IH SCH ×2 (08:54→19:41)
[2017-11-17] MEDS: PULMICORT IH SCH ×2 (08:54→19:40)
[2017-11-17] MEDS: PROTONIX PO SCH (10:17)
[2017-11-17] MEDS: SODIUM CHLORIDE FLUSH SYRINGE 10 ML IV SCH ×2 (10:20→21:48)
--- NOTE | 2017-11-17 12:50 | Progress Note ---
Hospitalist Physical - Constitutional Vitals: Temp Pulse Resp BP Pulse Ox 100.0 F H 102 H 20 103/60 91 11/17/17 07:27 11/17/17 09:15 11/17/17 09:15 11/17/17 07:27 11/17/17 09:15 General appearance: Present: well-nourished Results - Labs CBC & Chem 7: 11/09/17 06:26 11/09/17 06:26 Labs: Laboratory Last Values WBC 4.6 K/mm3 (4.5-11.0) 11/09/17 06:26 RBC 3.42 M/mm3 (3.65-5.03) L 11/09/17 06:26 Hgb 11.7 gm/dl (10.1-14.3) 11/09/17 06:26 Hct 33.3 % (30.3-42.9) 11/09/17 06:26 MCV 98 fl (79-97) H 11/09/17 06:26 MCH 34 pg (28-32) H 11/09/17 06:26 MCHC 35 % (30-34) H 11/09/17 06:26 RDW 14.3 % (13.2-15.2) 11/09/17 06:26 Plt Count 161 K/mm3 (140-440) 11/09/17 06:26 Lymph % (Auto) 33.2 % (13.4-35.0) 11/08/17 05:12 [place] % (Auto) 1.1 % (0.0-7.3) 11/08/17 05:12 Eos % (Auto) 0.5 % (0.0-4.3) 11/08/17 05:12 Baso % (Auto) 0.2 % (0.0-1.8) 11/08/17 05:12 Lymph # 2.4 K/mm3 (1.2-5.4) 11/08/17 05:12 [place] # 0.1 K/mm3 (0.0-0.8) 11/08/17 05:12 Eos # 0.0 K/mm3 (0.0-0.4) 11/08/17 05:12 Baso # 0.0 K/mm3 (0.0-0.1) 11/08/17 05:12 Seg Neutrophils % 65.0 % (40.0-70.0) 11/08/17 05:12 Seg Neutrophils # 4.6 K/mm3 (1.8-7.7) 11/08/17 05:12 PT 13.7 Sec. (12.2-14.9) 11/07/17 16:02 INR 1.00 (0.87-1.13) 11/07/17 16:02 APTT 24.4 Sec. (24.2-36.6) 11/07/17 16:02 POC ABG pH 7.509 (7.35-7.45) H 11/16/17 19:07 POC ABG pCO2 24.2 (35-45) L 11/16/17 19:07 POC ABG pO2 49 (80-105) L 11/16/17 19:07 POC ABG HCO3 19.2 11/16/17 19:07 POC ABG Total CO2 20 11/16/17 19:07 POC ABG O2 Sat 89 11/16/17 19:07 POC ABG Base Excess -4 11/16/17 19:07 FiO2 21 % 11/16/17 19:07 Sodium 140 mmol/L (137-145) 11/09/17 06:26 Potassium 4.2 mmol/L (3.6-5.0) 11/09/17 06:26 Chloride 104.9 mmol/L (98-107) 11/09/17 06:26 Carbon Dioxide 24 mmol/L (22-30) 11/09/17 06:26 Anion Gap 15 mmol/L 11/09/17 06:26 BUN 14 mg/dL (7-17) 11/09/17 06:26 Creatinine 0.6 mg/dL (0.7-1.2) L 11/09/17 06:26 Estimated GFR > 60 ml/min 11/09/17 06:26 BUN/Creatinine Ratio 23 % 11/09/17 06:26 Glucose 90 mg/dL (65-100) 11/09/17 06:26 POC Glucose 97 (70-105) 11/08/17 17:09 Hemoglobin A1c 6.5 % (4-6) H 11/07/17 23:04 Calcium 8.7 mg/dL (8.4-10.2) 11/09/17 06:26 Total Bilirubin 1.50 mg/dL (0.1-1.2) H 11/08/17 05:12 AST 22 units/L (5-40) 11/08/17 05:12 ALT 12 units/L (7-56) 11/08/17 05:12 Alkaline Phosphatase 57 units/L (35-129) 11/08/17 05:12 Total Protein 6.1 g/dL (6.3-8.2) L 11/08/17 05:12 Albumin 3.6 g/dL (3.9-5) L 11/08/17 05:12 Albumin/Globulin Ratio 1.4 % 11/08/17 05:12 Fluid Type Pleural 11/15/17 11:20 Fluid Color Red 11/15/17 11:20 Fluid Appearance Bloody 11/15/17 11:20 Fluid WBC 519 /mm3 11/15/17 11:20 Fluid RBC 64835 /mm3 11/15/17 11:20 Fluid Seg Neutrophils 70.0 % 11/15/17 11:20 Fluid Lymphocytes 19.0 % 11/15/17 11:20 Fluid Reactive Lymphs 0 % 11/15/17 11:20 Fluid Monocytes 9.0 % 11/15/17 11:20 Fluid Eosinophils 2.0 % 11/15/17 11:20 Fluid Basophils 0 % 11/15/17 11:20
--- NOTE | 2017-11-17 13:53 | Hem/Onc Progress Note ---
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 The patient on carboplatin and etoposide cycle 3, was started on and terminated on . 2. left Pneumothorax. This may be secondary to the lung lesions. s/p chest tube 3. Hypertension. 4. Port-A-Cath present. I will follow the patient during inpatient stay and then in the clinic setting. chest tube removed OP follo up - pt has apt - Patient Problems (1) Granulosa cell tumor Current Visit: Yes Status: Acute Subjective Date of service: 11/17/17 Principal diagnosis: ovarian granulosa cell ca with lung mets Interval history: feeling better not SOB chest tube removed Objective - Constitutional Vitals: Last Vital Signs Temp 100.0 F H 11/17/17 07:27 Pulse 102 H 11/17/17 09:15 Resp 20 11/17/17 09:15 BP 103/60 11/17/17 07:27 Pulse Ox 91 11/17/17 09:15 Pain Intensity (0-10): denies any pain General appearance: no acute distress Performance status: 1-light work, ambulatory - EENT ENT: clear oral mucosa Lymph node exam: negative cervical, negative supraclavicular - Neck Neck: normal ROM - Respiratory Respiratory effort: Positive: normal Respiratory: bilateral: CTA - Cardiovascular Heart Sounds: Present: S1 & S2 Extremities: No edema - Gastrointestinal General gastrointestinal: Present: soft, non-tender Rectal Exam: deferred - Integumentary Integumentary: warm - Musculoskeletal Musculoskeletal: strength equal bilaterally - Neurologic Neurologic: moves all extremities - Psychiatric Psychiatric: appropriate mood/affect - Labs Lab Results: Laboratory Results - last 24 hr 11/16/17 19:07 POC ABG pH 7.509 H POC ABG pCO2 24.2 L POC ABG pO2 49 L POC ABG HCO3 19.2 POC ABG Total CO2 20 POC ABG O2 Sat 89 POC ABG Base Excess -4 FiO2 21
[2017-11-17] MEDS: LOVENOX SUB-Q SCH (21:47)
[2017-11-18 04:32] LABS: Hematocrit 31.6 % (30.3-42.9); Hemoglobin 10.7 gm/dl (10.1-14.3); Mean Corpuscular HGB Conc 34 % (30-34); Mean Corpuscular Hemoglobin 33 pg (28-32); Mean Corpuscular Volume 98 fl (79-97); Platelet Count 166 K/mm3 (140-440); Red Blood Count 3.22 M/mm3 (3.65-5.03); Red Cell Distribution Width 13.9 % (13.2-15.2)
[2017-11-18 04:54] LABS: Albumin 2.7 g/dL (3.9-5); BUN/Creatinine Ratio 26; Blood Urea Nitrogen 13 mg/dL (7-17); Calcium 8.7 mg/dL (8.4-10.2); Hemolysis Index 175
[2017-11-18 05:20] LABS: Alanine Aminotransferase 16 units/L (7-56)
[2017-11-18 06:18] LABS: Band Neutrophils # (Manual) 0.2 K/mm3; Basophils % (Manual) 0 % (0.0-1.8); Eosinophils % (Manual) 0 % (0.0-4.3); Myelocytes # (Manual) 0.1 K/mm3; Platelet Estimate Consistent w Auto; Total Cells Counted 100
[2017-11-18 07:50] LABS: Amylase,Body Fluid 14; LDH,Body Fluid 1901; Total Protein,Body Fluid 4.7 (15.0-45.0)
[2017-11-18] MEDS: BROVANA NEBU IH SCH ×2 (09:23→19:23)
[2017-11-18] MEDS: PULMICORT IH SCH ×2 (09:23→19:23)
--- NOTE | 2017-11-18 11:23 | Progress Note ---
Hospitalist Physical - Constitutional Vitals: Temp Pulse Resp BP Pulse Ox 99.0 F 89 20 111/69 93 11/18/17 08:23 11/18/17 09:43 11/18/17 09:43 11/18/17 08:23 11/18/17 09:26 General appearance: Present: well-nourished Results - Labs CBC & Chem 7: 11/18/17 03:53 11/18/17 03:53 Labs: Laboratory Last Values WBC 2.2 K/mm3 (4.5-11.0) L 11/18/17 03:53 RBC 3.22 M/mm3 (3.65-5.03) L 11/18/17 03:53 Hgb 10.7 gm/dl (10.1-14.3) 11/18/17 03:53 Hct 31.6 % (30.3-42.9) 11/18/17 03:53 MCV 98 fl (79-97) H 11/18/17 03:53 MCH 33 pg (28-32) H 11/18/17 03:53 MCHC 34 % (30-34) 11/18/17 03:53 RDW 13.9 % (13.2-15.2) 11/18/17 03:53 Plt Count 166 K/mm3 (140-440) 11/18/17 03:53 Lymph % (Auto) 33.2 % (13.4-35.0) 11/08/17 05:12 [place] % (Auto) Erp Consultant 11/18/17 03:53 Eos % (Auto) 0.5 % (0.0-4.3) 11/08/17 05:12 Baso % (Auto) 0.2 % (0.0-1.8) 11/08/17 05:12 Lymph # 2.4 K/mm3 (1.2-5.4) 11/08/17 05:12 [place] # 0.1 K/mm3 (0.0-0.8) 11/08/17 05:12 Eos # 0.0 K/mm3 (0.0-0.4) 11/08/17 05:12 Baso # 0.0 K/mm3 (0.0-0.1) 11/08/17 05:12 Add Manual Diff Complete 11/18/17 03:53 Total Counted 100 11/18/17 03:53 Seg Neutrophils % Erp Consultant 11/18/17 03:53 Seg Neuts % (Manual) 16.0 % (40.0-70.0) L 11/18/17 03:53 Band Neutrophils % 9.0 % 11/18/17 03:53 Lymphocytes % (Manual) 54.0 % (13.4-35.0) H 11/18/17 03:53 Reactive Lymphs % (Man) 0 % 11/18/17 03:53 Monocytes % (Manual) 15.0 % (0.0-7.3) H 11/18/17 03:53 Eosinophils % (Manual) 0 % (0.0-4.3) 11/18/17 03:53 Basophils % (Manual) 0 % (0.0-1.8) 11/18/17 03:53 Metamyelocytes % 3.0 % 11/18/17 03:53 Myelocytes % 3.0 % 11/18/17 03:53 Promyelocytes % 0 % 11/18/17 03:53 Blast Cells % 0 % 11/18/17 03:53 Nucleated RBC % Not Reportable 11/18/17 03:53 Seg Neutrophils # 4.6 K/mm3 (1.8-7.7) 11/08/17 05:12 Seg Neutrophils # Man 0.4 K/mm3 (1.8-7.7) L 11/18/17 03:53 Band Neutrophils # 0.2 K/mm3 11/18/17 03:53 Lymphocytes # (Manual) 1.2 K/mm3 (1.2-5.4) 11/18/17 03:53 Abs React Lymphs (Man) 0.0 K/mm3 11/18/17 03:53 Monocytes # (Manual) 0.3 K/mm3 (0.0-0.8) 11/18/17 03:53 Eosinophils # (Manual) 0.0 K/mm3 (0.0-0.4) 11/18/17 03:53 Basophils # (Manual) 0.0 K/mm3 (0.0-0.1) 11/18/17 03:53 Metamyelocytes # 0.1 K/mm3 11/18/17 03:53 Myelocytes # 0.1 K/mm3 11/18/17 03:53 Promyelocytes # 0.0 K/mm3 11/18/17 03:53 Blast Cells # 0.0 K/mm3 11/18/17 03:53 WBC Morphology Not Reportable 11/18/17 03:53 Hypersegmented Neuts Not Reportable 11/18/17 03:53 Hyposegmented Neuts Not Reportable 11/18/17 03:53 Hypogranular Neuts Not Reportable 11/18/17 03:53 Smudge Cells Not Reportable 11/18/17 03:53 Toxic Granulation Not Reportable 11/18/17 03:53 Toxic Vacuolation Not Reportable 11/18/17 03:53 Dohle Bodies Not Reportable 11/18/17 03:53 Pelger-Huet Anomaly Not Reportable 11/18/17 03:53 Grzegorz Rods Not Reportable 11/18/17 03:53 Platelet Estimate Consistent w auto 11/18/17 03:53 Clumped Platelets Not Reportable 11/18/17 03:53 Plt Clumps, EDTA Not Reportable 11/18/17 03:53 Large Platelets Not Reportable 11/18/17 03:53 Giant Platelets Not Reportable 11/18/17 03:53 Platelet Satelliting Not Reportable 11/18/17 03:53 Plt Morphology Comment Not Reportable 11/18/17 03:53 RBC Morphology Not Reportable 11/18/17 03:53 Dimorphic RBCs Not Reportable 11/18/17 03:53 Polychromasia Not Reportable 11/18/17 03:53 Hypochromasia Not Reportable 11/18/17 03:53 Poikilocytosis Not Reportable 11/18/17 03:53 Anisocytosis Not Reportable 11/18/17 03:53 Microcytosis Not Reportable 11/18/17 03:53 Macrocytosis Not Reportable 11/18/17 03:53 Spherocytes Not Reportable 11/18/17 03:53 Pappenheimer Bodies Not Reportable 11/18/17 03:53 Sickle Cells Not Reportable 11/18/17 03:53 Target Cells Not Reportable 11/18/17 03:53 Tear Drop Cells Not Reportable 11/18/17 03:53 Ovalocytes Not Reportable 11/18/17 03:53 Helmet Cells Not Reportable 11/18/17 03:53 [place] Bodies Not Reportable 11/18/17 03:53 Holcomb Rings Not Reportable 11/18/17 03:53 [place] Cells Not Reportable 11/18/17 03:53 Bite Cells Not Reportable 11/18/17 03:53 Crenated Cell Not Reportable 11/18/17 03:53 Elliptocytes Not Reportable 11/18/17 03:53 Acanthocytes (Spur) Not Reportable 11/18/17 03:53 Rouleaux Not Reportable 11/18/17 03:53 Hemoglobin C Crystals Not Reportable 11/18/17 03:53 Schistocytes Not Reportable 11/18/17 03:53 Malaria parasites Not Reportable 11/18/17 03:53 Frandy Bodies Not Reportable 11/18/17 03:53 Hem Pathologist Commnt No 11/18/17 03:53 PT 13.7 Sec. (12.2-14.9) 11/07/17 16:02 INR 1.00 (0.87-1.13) 11/07/17 16:02 APTT 24.4 Sec. (24.2-36.6) 11/07/17 16:02 POC ABG pH 7.509 (7.35-7.45) H 11/16/17 19:07 POC ABG pCO2 24.2 (35-45) L 11/16/17 19:07 POC ABG pO2 49 (80-105) L 11/16/17 19:07 POC ABG HCO3 19.2 11/16/17 19:07 POC ABG Total CO2 20 11/16/17 19:07 POC ABG O2 Sat 89 11/16/17 19:07 POC ABG Base Excess -4 11/16/17 19:07 FiO2 21 % 11/16/17 19:07 Sodium 132 mmol/L (137-145) L 11/18/17 03:53 Potassium 5.2 mmol/L (3.6-5.0) H 11/18/17 03:53 Chloride 97.5 mmol/L (98-107) L 11/18/17 03:53 Carbon Dioxide 23 mmol/L (22-30) 11/18/17 03:53 Anion Gap 17 mmol/L 11/18/17 03:53 BUN 13 mg/dL (7-17) 11/18/17 03:53 Creatinine 0.5 mg/dL (0.7-1.2) L 11/18/17 03:53 Estimated GFR > 60 ml/min 11/18/17 03:53 BUN/Creatinine Ratio 26 % 11/18/17 03:53 Glucose 117 mg/dL (65-100) H 11/18/17 03:53 POC Glucose 97 (70-105) 11/08/17 17:09 Hemoglobin A1c 6.5 % (4-6) H 11/07/17 23:04 Calcium 8.7 mg/dL (8.4-10.2) 11/18/17 03:53 Total Bilirubin 0.70 mg/dL (0.1-1.2) 11/18/17 03:53 AST 36 units/L (5-40) 11/18/17 03:53 ALT 16 units/L (7-56) 11/18/17 03:53 Alkaline Phosphatase 95 units/L (35-129) 11/18/17 03:53 Total Protein 6.8 g/dL (6.3-8.2) 11/18/17 03:53 Albumin 2.7 g/dL (3.9-5) L 11/18/17 03:53 Albumin/Globulin Ratio 0.7 % 11/18/17 03:53 Fluid Type Pleural 11/15/17 11:20 Fluid Color Red 11/15/17 11:20 Fluid Appearance Bloody 11/15/17 11:20 Fluid WBC 519 /mm3 11/15/17 11:20 Fluid RBC 82845 /mm3 11/15/17 11:20 Fluid Seg Neutrophils 70.0 % 11/15/17 11:20 Fluid Lymphocytes 19.0 % 11/15/17 11:20 Fluid Reactive Lymphs 0 % 11/15/17 11:20 Fluid Monocytes 9.0 % 11/15/17 11:20 Fluid Eosinophils 2.0 % 11/15/17 11:20 Fluid Basophils 0 % 11/15/17 11:20 Fluid Glucose 117 mg/dL (40-70) H 11/15/17 11:20 Fluid Total Protein 4.7 (15.0-45.0) L 11/15/17 11:20 Fluid LDH 1901 11/15/17 11:20 Fluid Amylase 14 11/15/17 11:20
[2017-11-18] MEDS: SODIUM CHLORIDE FLUSH SYRINGE 10 ML IV SCH (11:54)
[2017-11-18] MEDS: PROTONIX PO SCH (11:54)
[2017-11-18] MEDS ORDERED: GRANIX SUB-Q SCH (12:00)
--- NOTE | 2017-11-18 13:03 | Event Note ---
Date: 11/18/17 Held over weekend due to persistent hypoxemia - to discharge with home oxygen today - appreciate hospitalist's assistance with management this hospitalization
[2017-11-18 13:44] VITALS: BP 105/47
--- NOTE | 2017-11-18 13:54 | Hem/Onc Progress Note ---
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 The patient on carboplatin and etoposide cycle 3, was started on and terminated on . 2. left Pneumothorax. This may be secondary to the lung lesions. s/p chest tube 3. Hypertension. 4. Port-A-Cath present. I will follow the patient during inpatient stay and then in the clinic setting. chest tube removed low ANC - GCSF x1 today - 11/18 OP follo up - pt has apt - Patient Problems (1) Granulosa cell tumor Current Visit: Yes Status: Acute Subjective Date of service: 11/18/17 Principal diagnosis: granulosa cell ovarian ca Interval history: feeling better not SOB chest tube removed c/o left chest discomfort Objective - Constitutional Vitals: Last Vital Signs Temp 98.5 F 11/18/17 13:32 Pulse 92 H 11/18/17 13:32 Resp 20 11/18/17 13:32 BP 105/47 11/18/17 13:32 Pulse Ox 91 11/18/17 13:32 Pain Intensity (0-10): 1/10 (left chest) General appearance: mild distress Performance status: 2- selfcare, ambulatory - EENT ENT: clear oral mucosa Lymph node exam: negative cervical, negative supraclavicular - Respiratory Respiratory effort: Positive: normal Respiratory: bilateral: diminished (bases - poor effort) - Cardiovascular Heart Sounds: Present: S1 & S2 Extremities: No edema - Gastrointestinal General gastrointestinal: Present: soft, non-tender Rectal Exam: deferred - Genitourinary Female genitourinary: Present: deferred - Integumentary Integumentary: warm - Musculoskeletal Musculoskeletal: strength equal bilaterally - Neurologic Neurologic: moves all extremities - Psychiatric Psychiatric: appropriate mood/affect - Labs Lab Results: Laboratory Results - last 24 hr 11/15/17 11/18/17 11/18/17 11:20 03:53 03:53 WBC 2.2 L RBC 3.22 L Hgb 10.7 Hct 31.6 MCV 98 H MCH 33 H MCHC 34 RDW 13.9 Plt Count 166 [place] % (Auto) Nut Process Helper Add Manual Diff Complete Total Counted 100 Seg Neutrophils % Nut Process Helper Seg Neuts % (Manual) 16.0 L Band Neutrophils % 9.0 Lymphocytes % (Manual) 54.0 H Reactive Lymphs % (Man) 0 Monocytes % (Manual) 15.0 H Eosinophils % (Manual) 0 Basophils % (Manual) 0 Metamyelocytes % 3.0 Myelocytes % 3.0 Promyelocytes % 0 Blast Cells % 0 Nucleated RBC % Not Reportable Seg Neutrophils # Man 0.4 L Band Neutrophils # 0.2 Lymphocytes # (Manual) 1.2 Abs React Lymphs (Man) 0.0 Monocytes # (Manual) 0.3 Eosinophils # (Manual) 0.0 Basophils # (Manual) 0.0 Metamyelocytes # 0.1 Myelocytes # 0.1 Promyelocytes # 0.0 Blast Cells # 0.0 WBC Morphology Not Reportable Hypersegmented Neuts Not Reportable Hyposegmented Neuts Not Reportable Hypogranular Neuts Not Reportable Smudge Cells Not Reportable Toxic Granulation Not Reportable Toxic Vacuolation Not Reportable Dohle Bodies Not Reportable Pelger-Huet Anomaly Not Reportable Grzegorz Rods Not Reportable Platelet Estimate Consistent w auto Clumped Platelets Not Reportable Plt Clumps, EDTA Not Reportable Large Platelets Not Reportable Giant Platelets Not Reportable Platelet Satelliting Not Reportable Plt Morphology Comment Not Reportable RBC Morphology Not Reportable Dimorphic RBCs Not Reportable Polychromasia Not Reportable Hypochromasia Not Reportable Poikilocytosis Not Reportable Anisocytosis Not Reportable Microcytosis Not Reportable Macrocytosis Not Reportable Spherocytes Not Reportable Pappenheimer Bodies Not Reportable Sickle Cells Not Reportable Target Cells Not Reportable Tear Drop Cells Not Reportable Ovalocytes Not Reportable Helmet Cells Not Reportable [place] Bodies Not Reportable [place] Rings Not Reportable [place] Cells Not Reportable Bite Cells Not Reportable Crenated Cell Not Reportable Elliptocytes Not Reportable Acanthocytes (Spur) Not Reportable Rouleaux Not Reportable Hemoglobin C Crystals Not Reportable Schistocytes Not Reportable Malaria parasites Not Reportable Frandy Bodies Not Reportable Hem Pathologist Commnt No Sodium 132 L Potassium 5.2 H Chloride 97.5 L Carbon Dioxide 23 Anion Gap 17 BUN 13 Creatinine 0.5 L Estimated GFR > 60 BUN/Creatinine Ratio 26 Glucose 117 H Calcium 8.7 Total Bilirubin 0.70 AST 36 ALT 16 Alkaline Phosphatase 95 Total Protein 6.8 Albumin 2.7 L Albumin/Globulin Ratio 0.7 Fluid Glucose 117 H Fluid Total Protein 4.7 L Fluid LDH 1901 Fluid Amylase 14
== END 2017-11-18 18:40 | disposition home or self-care (01) | DRG 181 ==
LOC: ED 14:29 → EDSTATUS 14:36 → 4A 18:47 → 2B-ACE 11-13 21:12
PROVIDERS: ADMIT Internal Medicine; ATTEND Internal Medicine
PROC: 0W9B30Z Drainage of Left Pleural Cavity with Drainage Device, Percutaneous Approach (ICD-10-PCS; principal; 2017-11-07)
PROC: 0WB83ZX Excision of Chest Wall, Percutaneous Approach, Diagnostic (ICD-10-PCS; 2017-11-08)
PROC: 4A033R1 Measurement of Arterial Saturation, Peripheral, Percutaneous Approach (ICD-10-PCS; 2017-11-10)
PROC: 0BPQX0Z Removal of Drainage Device from Pleura, External Approach (ICD-10-PCS; 2017-11-16)
DX: C78.00 Secondary malignant neoplasm of unspecified lung (principal); C56.9 Malignant neoplasm of unspecified ovary; J90 Pleural effusion, not elsewhere classified; J93.83 Other pneumothorax; D39.10 Neoplasm of uncertain behavior of unspecified ovary; I10 Essential (primary) hypertension; R09.02 Hypoxemia; J44.9 Chronic obstructive pulmonary disease, unspecified; E11.9 Type 2 diabetes mellitus without complications; K21.9 Gastro-esophageal reflux disease without esophagitis; Z90.710 Acquired absence of both cervix and uterus; Z88.0 Allergy status to penicillin
CPT/HCPCS: 36415; 36600; 71045; 71046; 71250; 76830; 76856; 80048; 80053; 82150; 82803; 82947; 82962; 83036; 83605; 84160; 85007; 85025; 85027; 85610; 85730; 87076; 87102; 87116; 87186; 87220; 89051; 94640; 94760; J1447; J1650; J1940; J2060; J2270; J2405; J7030